=== PATIENT | male | born 1970 | race Caucasian/White ===

== ENCOUNTER 2024-03-13 20:41 | Observation (INO) ==
[2024-03-13 22:30] LABS: Basophils # (auto) 0.07 K/uL (0.00-0.20); Eosinophils # (auto) 0.22 K/uL (0.00-0.50); Eosinophils % (auto) 3.1 %; Hematocrit (blood only) 45.5 % (42.0-52.0); Hemoglobin 16.5 g/dl (14.0-18.0); Immature Granulocytes # (auto) 0.04 K/uL (0.01-0.20); Immature Granulocytes % (auto) 0.6 %; Lymphocytes # (auto) 2.32 K/uL (1.20-3.40); Lymphocytes % (auto) 32.5 %; Mean Corpuscular Hemoglobin 31.8 pg (25.0-34.0); Mean Corpuscular Hgb Conc 36.3 g/dL (32.0-36.0); Mean Corpuscular Volume 87.7 fL (80.0-100.0); Mean Platelet Volume 10.1 fL (9.4-12.4); Monocytes # (auto) 0.78 K/uL (0.11-0.59); Monocytes % (auto) 10.9 %; Neutrophils % (auto) 51.9 %; Platelet Count 326 K/uL (130-400); RDW Coefficient of Variation 12.7 % (11.5-14.5); RDW Standard Deviation 39.7 fL (36.4-46.3); Red Blood Count 5.19 M/uL (4.70-6.10); White Blood Count 7.13 K/ul (4.8-10.8)
[2024-03-13 22:42] LABS: Appearance Urine Clear (Clear); Bilirubin Urine Negative (Negative); Blood Urine Negative (Negative); Color Urine Yellow; Glucose Urine UA 3+ (Negative); Ketones Urine Trace (Negative); Leukocyte Esterase Urine Negative (Negative); Nitrite Urine Negative (Negative); Protein Urine Negative (Negative); Specific Gravity Urine 1.042 (1.000-1.030); Urobilinogen Urine Negative (Negative); pH Urine 6.5 (4.5-7.5)
[2024-03-13 22:55] LABS: Alanine Aminotransferase 43 U/L (7-52); Albumin Globulin Ratio 1.2 (0.9-2); Albumin Level 4.2 gm/dl (3.4-5.0); Alkaline Phosphatase 97 U/L (34-104); Anion Gap 8 (3-11); BUN Creatinine Ratio 14.1 (10-20); Bilirubin,Total 0.5 mg/dl (0.2-1.0); Blood Urea Nitrogen 14 mg/dl (6-23); Calcium 9.7 mg/dl (8.6-10.3); Carbon Dioxide 24 mmol/L (21-32); Chloride 98 mmol/L (98-107); Creatinine Clr Calc Pharmacy 126.5 ml/min; Est GFR (African American) 101.1 ml/min; Est GFR (Non-African American) 87.2 ml/min; Globulin 3.5 gm/dl (2.5-4.0); Glucose 474 mg/dl (70-99(Fasting)); Sodium 130 mmol/L (136-145); Total Protein 7.7 gm/dl (6.0-8.3)
[2024-03-13 23:08] LABS: Troponin I High Sensitivity 5.9 pg/ml (0-20)
[2024-03-13 23:24] LABS: Base Excess VBG 2.4 mEq/L; HCO3 VBG 29 mmol/L; Oxygen Saturation VBG < 60.0 %; PCO2 VBG 51 mmHg (38-50); PO2 VBG < 20 mmHg; pH VBG 7.36 (7.36-7.41)
[2024-03-13] MEDS: SODIUM CHLORIDE 0.9% 1,000 ML IV SCH (23:25)
[2024-03-13 23:46] LABS: Potassium 4.4 mmol/L (3.5-5.1)
[2024-03-14] MEDS: NovoLIN-R INSULIN PER UNIT CHARGE IV STA (00:05)
--- NOTE | 2024-03-14 00:05 | Emergency Department Note ---
History of Present Illness General Chief complaint: Hyperglycemia Stated complaint: HIGH GLUCOSE, BLURRY VISION, RT ARM/LT LEG NUMB Time Seen by Provider: 03/13/24 22:33 History of Present Illness This 53-year-old male presents ER complaining of polydipsia, polyuria and diplopia for the past month. Patient states has been on metformin in the past but is not tolerating it. He was concerned his blood sugars are reading greater than 400 and came in. Patient denies chest pain, dyspnea, fever, chills, cough, congestion, abdominal pain or flulike illness. Home Medications Medication Instructions Recorded Confirmed Type ascorbic acid (vitamin C) 100 mg 100 mg PO DAILY 08/11/21 03/14/24 History tablet (Vitamin C) famotidine 20 mg tablet (Pepcid) 20 mg PO BID 08/11/21 03/14/24 History hyoscyamine sulfate 0.125 mg 0.125 mg sublingual Q6 PRN cramping 08/11/21 03/14/24 History sublingual tablet methotrexate sodium 2.5 mg tablet See Rx Instructions .Route .COMPLEX 08/11/21 03/14/24 History multivitamin (Daily Multi-Vitamin 1 tab PO DAILY 08/11/21 03/14/24 History tablet) omega 6-lzu-bpn-fish oil 1,000 mg 1 cap PO DAILY 08/11/21 03/14/24 History (120 mg-180 mg) capsule (Fish Oil) polyethylene glycol 3350 17 17 g PO DAILY 08/11/21 03/14/24 History gram/dose oral powder (Miralax) folic acid 1 mg tablet 1 mg PO [id number] 12/16/23 03/14/24 History amlodipine 2.5 mg tablet 2.5 mg PO QAM 03/14/24 03/14/24 History atorvastatin 20 mg tablet 20 mg PO QAM 03/14/24 03/14/24 History metformin 500 mg tablet,extended 500 mg PO DAILY 03/14/24 03/14/24 History release 24 hr Allergies Allergy/AdvReac Type Severity Reaction Status Date / Time Penicillins Allergy Unknown HAPPENED Verified 03/14/24 00:31 A CHILD amoxicillin [From Augmentin] AdvReac Unknown reacts Verified 03/14/24 00:31 with methotrexate clavulanic acid AdvReac Unknown reacts Verified 03/14/24 00:31 [From Augmentin] with methotrexate sulfamethoxazole AdvReac Unknown reacts Verified 03/14/24 00:31 [From Bactrim] with methotrexate trimethoprim [From Bactrim] AdvReac Unknown reacts Verified 03/14/24 00:31 with methotrexate Past Med/Surg History Problem List Acute hyperglycemia (Acute) Moderate obstructive sleep apnea No significant past surgical history Concussion Vasovagal syncope (Acute) Irritable bowel disease (Acute) Syncope (Acute) Vasovagal syncope (Acute) Head contusion (Acute) Laceration of eyebrow, right (Acute) Shoulder pain (Acute) Syncope and collapse (Acute) Social History Smoking Status: Never smoker Preferred Language: Turkmen marital status: Current Living Situation: Spouse current occupational status: employed Feels Safe at Home: Yes Review of Systems A total of 10 systems reviewed and were otherwise negative Physical Exam Vital Signs Vital Signs - 24 hr 03/13/24 21:28 03/13/24 23:29 Temperature 36.5 C Temperature Source Temporal Artery Scan Pulse Rate 103 H Pulse Rate [Finger] 88 Respiratory Rate 18 18 Respiratory Effort / Characteristics Non-Labored Spontaneous Non-Labored Spontaneous Respiratory Depth Normal Normal Respiratory Pattern Regular Blood Pressure 150/93 H Blood Pressure [Right Arm] 126/87 Blood Pressure Mean 112 Blood Pressure Mean [Right Arm] 100 Blood Pressure Position [Right Arm] Semi-fowlers Pulse Oximetry 94 93 Oxygen Delivery Method Room Air Room Air Sepsis Recent Fever Within 48 Hours No Sepsis New/Unexplained Change in Mental Status No Sepsis Action Taken by Nursing No Action Required VITALS: Vitals are noted on the nurse's note and reviewed by myself. Vital signs stable. GENERAL: Pleasant gentleman, in no acute distress, nondiaphoretic, well- developed well-nourished. SKIN: Capillary reflex less than 2 seconds. HEENT: Normocephalic. PERRLA. EOMI. Nares patent. Mucous membranes moist. Neck is supple without nuchal rigidity. HEART: Regular rate and rhythm LUNGS: Clear to auscultation bilaterally without wheezes, rales or rhonchi. No retractions or accessory muscle use. ABDOMEN: Positive bowel sounds x 4. Normal tympanic percussion. Soft, nontender, without masses or organomegaly. Gonzalez sign negative. No guarding or rebound tenderness. no CVA tenderness MUSCULOSKELETAL: No gross musculoskeletal defects. NEURO: Patient was alert and oriented to person place and time. No focal neurological deficits. Course Administered Medications Discontinued Medications Sodium Chloride (Nss) 1,000 mls @ 999 mls/hr IV .Q1H1M LEDA Stop: 03/14/24 00:45 Last Admin: 03/14/24 00:06 Dose: 999 mls/hr Documented By: Infusion: 03/14/24 00:06 Dose: Infused Documented By: Admin: 03/13/24 23:25 Dose: 999 mls/hr Documented By: Insulin Human Regular (Novolin-R Insulin Per Unit Charge) 10 units IV NOW STA Stop: 03/14/24 00:02 Last Admin: 03/14/24 00:05 Dose: 10 units Documented By: Co-signed By: ELIZABETH Medical Decision Making Medical Records Attestation: I reviewed the patient's medical records. Home Medications Current Medication List: was personally reviewed by me Laboratory Data Attestation: I reviewed the patient's lab results. 03/13/24 22:05 03/13/24 23:11 Lab Results 03/13/24 03/13/24 03/13/24 Range/Units 21:31 22:05 22:10 WBC 7.13 (4.8-10.8) K/ul RBC 5.19 (4.70-6.10) M/uL Hgb 16.5 (14.0-18.0) g/dl Hct 45.5 (42.0-52.0) % MCV 87.7 (80.0-100.0) fL MCH 31.8 (25.0-34.0) pg MCHC 36.3 H (32.0-36.0) g/dL RDW Std Deviation 39.7 (36.4-46.3) fL RDW Coeff of Caitlin 12.7 (11.5-14.5) % Plt Count 326 (130-400) K/uL MPV 10.1 (9.4-12.4) fL Immature Gran % (Auto) 0.6 % Neut % (Auto) 51.9 % Lymph % (Auto) 32.5 % Bee % (Auto) 10.9 % Eos % (Auto) 3.1 % Baso % (Auto) 1.0 % Neut # (Auto) 3.70 (1.40-6.50) K/uL Lymph # (Auto) 2.32 (1.20-3.40) K/uL Bee # (Auto) 0.78 H (0.11-0.59) K/uL Eos # (Auto) 0.22 (0.00-0.50) K/uL Baso # (Auto) 0.07 (0.00-0.20) K/uL Immature Gran # (Auto) 0.04 (0.01-0.20) K/uL VBG pH (7.36-7.41) VBG pCO2 (38-50) mmHg VBG pO2 mmHg VBG HCO3 mmol/L VBG O2 Saturation % VBG Base Excess mEq/L Sodium 130 L (136-145) mmol/L Potassium TNP Chloride 98 (98-107) mmol/L Carbon Dioxide 24 (21-32) mmol/L Anion Gap 8 (3-11) BUN 14 (6-23) mg/dl Creatinine 0.99 (0.6-1.4) mg/dl Est Cr Clr Drug Dosing 126.5 ml/min Est GFR ( Amer) 101.1 ml/min Est GFR (Non-Af Amer) 87.2 ml/min BUN/Creatinine Ratio 14.1 (10-20) Glucose 474 H* (70-99(Fasting)) mg/dl POC Glucose 402 H* (70-99) mg/dl Calcium 9.7 (8.6-10.3) mg/dl Magnesium 2.0 (1.7-2.4) mg/dl Total Bilirubin 0.5 (0.2-1.0) mg/dl AST TNP ALT 43 (7-52) U/L Alkaline Phosphatase 97 (34-104) U/L Troponin I High Sens 5.9 (0-20) pg/ml Total Protein 7.7 (6.0-8.3) gm/dl Albumin 4.2 (3.4-5.0) gm/dl Globulin 3.5 (2.5-4.0) gm/dl Albumin/Globulin Ratio 1.2 (0.9-2) Urine Color Yellow Urine Appearance Clear (Clear) Urine pH 6.5 (4.5-7.5) Ur Specific [place] 1.042 H (1.000-1.030) Urine Protein Negative (Negative) Urine Glucose (UA) 3+ H (Negative) Urine Ketones Trace H (Negative) Urine Blood Negative (Negative) Urine Nitrite Negative (Negative) Urine Bilirubin Negative (Negative) Urine Urobilinogen Negative (Negative) Ur Leukocyte Esterase Negative (Negative) 03/13/24 03/14/24 Range/Units 23:11 00:00 WBC (4.8-10.8) K/ul RBC (4.70-6.10) M/uL Hgb (14.0-18.0) g/dl Hct (42.0-52.0) % MCV (80.0-100.0) fL MCH (25.0-34.0) pg MCHC (32.0-36.0) g/dL RDW Std Deviation (36.4-46.3) fL RDW Coeff of Caitlin (11.5-14.5) % Plt Count (130-400) K/uL MPV (9.4-12.4) fL Immature Gran % (Auto) % Neut % (Auto) % Lymph % (Auto) % Bee % (Auto) % Eos % (Auto) % Baso % (Auto) % Neut # (Auto) (1.40-6.50) K/uL Lymph # (Auto) (1.20-3.40) K/uL Bee # (Auto) (0.11-0.59) K/uL Eos # (Auto) (0.00-0.50) K/uL Baso # (Auto) (0.00-0.20) K/uL Immature Gran # (Auto) (0.01-0.20) K/uL VBG pH 7.36 (7.36-7.41) VBG pCO2 51 H (38-50) mmHg VBG pO2 < 20 mmHg VBG HCO3 29 mmol/L VBG O2 Saturation < 60.0 % VBG Base Excess 2.4 mEq/L Sodium (136-145) mmol/L Potassium 4.4 Chloride (98-107) mmol/L Carbon Dioxide (21-32) mmol/L Anion Gap (3-11) BUN (6-23) mg/dl Creatinine (0.6-1.4) mg/dl Est Cr Clr Drug Dosing ml/min Est GFR ( Amer) ml/min Est GFR (Non-Af Amer) ml/min BUN/Creatinine Ratio (10-20) Glucose (70-99(Fasting)) mg/dl POC Glucose 363 H* (70-99) mg/dl Calcium (8.6-10.3) mg/dl Magnesium (1.7-2.4) mg/dl Total Bilirubin (0.2-1.0) mg/dl AST 34 ALT (7-52) U/L Alkaline Phosphatase (34-104) U/L Troponin I High Sens (0-20) pg/ml Total Protein (6.0-8.3) gm/dl Albumin (3.4-5.0) gm/dl Globulin (2.5-4.0) gm/dl Albumin/Globulin Ratio (0.9-2) Urine Color Urine Appearance (Clear) Urine pH (4.5-7.5) Ur Specific [place] (1.000-1.030) Urine Protein (Negative) Urine Glucose (UA) (Negative) Urine Ketones (Negative) Urine Blood (Negative) Urine Nitrite (Negative) Urine Bilirubin (Negative) Urine Urobilinogen (Negative) Ur Leukocyte Esterase (Negative) Imaging Data Attestation: I personally reviewed and interpreted this imaging study as follows: MDM Narrative Prior records/ancillary studies reviewed and summarized above. Nursing notes reviewed. Additional history obtained from nursing The patient's history was concerning for elevated blood sugar. Differential diagnosis: Etiologies such as metabolic, infection, hypo/hyperglycemia, electrolyte abnormalities, cardiac sources, intracerebral event, toxicologic, neurologic, as well as others were entertained. Physical examination: As above. ER treatment provided: IV Lock An order was placed for continuous cardiac monitoring. The monitor shows a rate of 60-100 with a sinus rhythm per my interpretation. IV fluids, insulin On reassessment the patient felt better. Diagnostics interpretation by me: ECG: Ordered for hyperglycemia EKG: Normal sinus, normal intervals, no acute ST-T wave changes. Impression normal sinus rhythm independently interpreted by myself The labs Independently Interpreted by myself revealed hyperglycemia without DKA. Negative urine Imaging studies: Chest x-ray with no acute consolidation, pneumothorax or free air per my independent interpretation Consultation: A consultation was placed with the hospitalist. The case was discussed and diagnostics were reviewed. The patient was evaluated in the ER for further treatment. Exam and history seem consistent with newly diagnosed poorly controlled diabetes. Patient is not able to tolerate the metformin. He is symptomatic. He was given insulin and IV fluids. Medicine was consulted case discussed. He will be admitted to the medical service for further evaluation and workup. No obvious source of infection. By the evaluation outlined above emergent etiologies such as infection, electrolyte abnormalities, cardiac sources, intracerebral event, toxologic, neurologic, metabolic, as well as others were deemed relatively unlikely. The pt informed about the findings as listed above. All questions were answered and pleased with the treatment. The chart was completed utilizing [employer] Speech voice recognition software. Grammatical errors, random word insertions, pronoun errors, and incomplete sentences are an occassional consequence of this system due to software limitations, ambient noise, and hardware issues. Any formal questions or concerns about the content, text, or information contained within the body of this dictation should be directly addressed to the physician medical claims assistant for clarification. Impression & Plan Acute hyperglycemia Discharge Plan Visit Data Chief Complaint: Hyperglycemia Stated Complaint: HIGH GLUCOSE, BLURRY VISION, RT ARM/LT LEG NUMB ED Provider: Celio Arguelles ED Midlevel Provider: Kerri Armstrong Discharge Problem: Acute hyperglycemia Patient Disposition: Admitted As Inpatient Condition: Good Forms Stand Alone Forms: My [employer] Prescriptions Prescriptions: No Action multivitamin [Daily Multi-Vitamin] Tablet 1 tab PO DAILY famotidine [Pepcid] 20 mg Tablet 20 mg PO BID Vitamin C 100 mg Tablet 100 mg PO DAILY omega 2-diq-bcm-fish oil [Fish Oil] 1,000 mg (120 mg-180 mg) Capsule 1 cap PO DAILY methotrexate sodium 2.5 mg tablet See Rx Instructions .ROUTE .COMPLEX Rx Instructions: take 3 tablets by mouth with lunch and 3 tablets with dinner on sundays hyoscyamine sulfate 0.125 mg tablet, sublingual 0.125 mg sublingual Q6 PRN (Reason: cramping) polyethylene glycol 3350 [Miralax] 17 gram/dose Powder 17 g PO DAILY folic acid 1 mg tablet 1 mg PO [id number] Rx Instructions: TAKES EVERY DAY EXCEPT SUNDAYS. atorvastatin 20 mg tablet 20 mg PO QAM amlodipine 2.5 mg tablet 2.5 mg PO QAM metformin 500 mg Tablet Extended Release 24 Hr 500 mg PO DAILY Referrals Referrals: Bashir Plaza MD [Primary Care Provider] -
--- NOTE | 2024-03-14 03:06 | History & Physical Report ---
Date of Service March 14, 2024 Assessment & Plan (1) Acute hyperglycemia: Plan: 53-year-old male with past medical history significant for type 2 diabetes, hyperlipidemia, obstructive sleep apnea, allergic rhinitis, hypertension, obesity, irritable bowel syndrome, history of basal cell carcinoma, history of dermatographic urticaria, history of ocular migraine, history of rheumatoid arthritis, presents with hyperglycemia. Patient says he was on metformin last year but took only for 1 month and stopped it because felt it was causing fatigue. Recently saw PCP and his HbA1c was increased from 5.7 last year to 8.5. Seems/when his metformin was increased to 1000 mg he felt fatigued and tired. Metformin 500 mg was restarted about a week ago. He was also prescribed Mounjaro but patient states not sure if insurance approved it yet. But his sugars were running high at home and came to the ER. Sugars are running in the 400s in the ER. Had a lot of blurred visions from high sugars. Denies any headache. No dizziness. No runny nose or sore throat, no cough. No fevers. No chest pain or shortness of breath. No nausea or abdominal pain. Normal bowel and bladder movements. Ambulating okay. Currently resting comfortably and hemodynamically stable. Acute hyperglycemia Recent HbA1c 8.5 Could not tolerate metformin increased dose last year Metformin 500 mg started about 1 week ago Mounjaro was prescribed but not started taking it yet Blood sugar in 400s. Not in DKA Will place him on insulin sliding scale and Lantus 6 units twice daily Follow HbA1c levels IV fluids Glycemic pharmacy consult Close monitor Sleep apnea CPAP nightly says not uses it daily needs counselling Hypertension on amlodipine Will monitor Hyperlipidemia On statin Rheumatoid arthritis On methotrexate which will be held for now Obesity Needs counseling DVT prophylaxis SCDs for now Disposition Observation medical floor Full code History of Present Illness Chief Complaint: Hyperglycemia Primary Care Provider: Bashir Plaza MD 53-year-old male with past medical history significant for type 2 diabetes, hyperlipidemia, obstructive sleep apnea, allergic rhinitis, hypertension, obesity, irritable bowel syndrome, history of basal cell carcinoma, history of dermatographic urticaria, history of ocular migraine, history of rheumatoid arthritis, presents with hyperglycemia. Patient says he was on metformin last year but took only for 1 month and stopped it because felt it was causing fa tigue. Recently saw PCP and his HbA1c was increased from 5.7 last year to 8.5. Seems/when his metformin was increased to 1000 mg he felt fatigued and tired. Metformin 500 mg was restarted about a week ago. He was also prescribed Mounjaro but patient states not sure if insurance approved it yet. But his sugars were running high at home and came to the ER. Sugars are running in the 400s in the ER. Had a lot of blurred visions from high sugars. Denies any headache. No dizziness. No runny nose or sore throat, no cough. No fevers. No chest pain or shortness of breath. No nausea or abdominal pain. Normal bowel and bladder movements. Ambulating okay. Currently resting comfortably and hemodynamically stable. Past medical history. As mentioned above Past surgical history. Colonoscopy. Dental surgery. EGD Social history. . No smoking. No alcohol use. No drug use. Family history. Aunt has rheumatoid arthritis. Mother has rheumatoid arthritis. A-fib, IBS, stroke. Father has bipolar 2 disorder, diabetes. Allergies Allergy/AdvReac Type Severity Reaction Status Date / Time Penicillins Allergy Unknown HAPPENED Verified 03/14/24 00:31 A CHILD amoxicillin [From Augmentin] AdvReac Unknown reacts Verified 03/14/24 00:31 with methotrexate clavulanic acid AdvReac Unknown reacts Verified 03/14/24 00:31 [From Augmentin] with methotrexate sulfamethoxazole AdvReac Unknown reacts Verified 03/14/24 00:31 [From Bactrim] with methotrexate trimethoprim [From Bactrim] AdvReac Unknown reacts Verified 03/14/24 00:31 with methotrexate Home Medications Medication Instructions Recorded Confirmed Type ascorbic acid (vitamin C) 100 mg 100 mg PO DAILY 08/11/21 03/14/24 History tablet (Vitamin C) famotidine 20 mg tablet (Pepcid) 20 mg PO BID 08/11/21 03/14/24 History hyoscyamine sulfate 0.125 mg 0.125 mg sublingual Q6 PRN cramping 08/11/21 03/14/24 History sublingual tablet methotrexate sodium 2.5 mg tablet See Rx Instructions .Route .COMPLEX 08/11/21 03/14/24 History multivitamin (Daily Multi-Vitamin 1 tab PO DAILY 08/11/21 03/14/24 History tablet) omega 6-fzs-hkw-fish oil 1,000 mg 1 cap PO DAILY 08/11/21 03/14/24 History (120 mg-180 mg) capsule (Fish Oil) polyethylene glycol 3350 17 17 g PO DAILY 08/11/21 03/14/24 History gram/dose oral powder (Miralax) folic acid 1 mg tablet 1 mg PO [id number] 12/16/23 03/14/24 History amlodipine 2.5 mg tablet 2.5 mg PO QAM 03/14/24 03/14/24 History atorvastatin 20 mg tablet 20 mg PO QAM 03/14/24 03/14/24 History metformin 500 mg tablet,extended 500 mg PO DAILY 03/14/24 03/14/24 History release 24 hr Past Med/Surg History Problem List Acute hyperglycemia (Acute) Moderate obstructive sleep apnea No significant past surgical history Concussion Vasovagal syncope (Acute) Irritable bowel disease (Acute) Syncope (Acute) Vasovagal syncope (Acute) Head contusion (Acute) Laceration of eyebrow, right (Acute) Shoulder pain (Acute) Syncope and collapse (Acute) Social History Smoking Status: Never smoker Hx Alcohol Use: No Hx Substance Use: No Preferred Language: Turkish Communication Ability: Effective Instrument Maker Required: No Beliefs That Will Affect Care: None marital status: Current Living Situation: Spouse current occupational status: employed Other Information That Helps Us Care for You: No Feels Safe at Home: Yes Safety Concerns: Feels Safe At This Time Assistive Devices: Glasses Review of Systems Review of Systems: All systems reviewed & are unremarkable except as noted in HPI & below Physical Exam Physical Exam: General- Not in distress Head- atraumatic Eyes- PERRL. ENT- oropharynx clear Neck- supple, no JVD. Lungs- clear to auscultation no wheezing or crackles Heart- regular rate and rhythm; no murmur, no gallop. Abdomen- normal bowel sounds, soft, nontender, no distension Extremities- no pretibial edema, no erythema seen Neuro- alert, oriented ; PERRL, no facial palsy; no dysarthria; moves extremities. Results & Data Results & Data Vital Signs (Past 12 Hours) Vital Signs Temp Pulse Pulse Resp BP BP Pulse Ox 08/29/24 01:34 85 18 146/82 H 97 03/13/24 23:29 88 18 126/87 93 03/13/24 21:28 36.5 C 103 H 18 150/93 H 94 O2 Del Method 03/14/24 01:34 Room Air 03/13/24 23:29 Room Air 03/13/24 21:28 Room Air Diagnostic Findings Laboratory Results WBC 7.13 K/ul (4.8-10.8) 03/13/24 22:05 RBC 5.19 M/uL (4.70-6.10) 03/13/24 22:05 Hgb 16.5 g/dl (14.0-18.0) 03/13/24 22:05 Hct 45.5 % (42.0-52.0) 03/13/24 22:05 MCV 87.7 fL (80.0-100.0) 03/13/24 22:05 MCH 31.8 pg (25.0-34.0) 03/13/24 22:05 MCHC 36.3 g/dL (32.0-36.0) H 03/13/24 22:05 RDW Std Deviation 39.7 fL (36.4-46.3) 03/13/24 22:05 RDW Coeff of Caitlin 12.7 % (11.5-14.5) 03/13/24 22:05 Plt Count 326 K/uL (130-400) 03/13/24 22:05 MPV 10.1 fL (9.4-12.4) 03/13/24 22:05 Immature Gran % (Auto) 0.6 % 03/13/24 22:05 Neut % (Auto) 51.9 % 03/13/24 22:05 Lymph % (Auto) 32.5 % 03/13/24 22:05 Gregory % (Auto) 10.9 % 03/13/24 22:05 Eos % (Auto) 3.1 % 03/13/24 22:05 Baso % (Auto) 1.0 % 03/13/24 22:05 Neut # (Auto) 3.70 K/uL (1.40-6.50) 03/13/24 22:05 Lymph # (Auto) 2.32 K/uL (1.20-3.40) 03/13/24 22:05 Gregory # (Auto) 0.78 K/uL (0.11-0.59) H 03/13/24 22:05 Eos # (Auto) 0.22 K/uL (0.00-0.50) 03/13/24 22:05 Baso # (Auto) 0.07 K/uL (0.00-0.20) 03/13/24 22:05 Immature Gran # (Auto) 0.04 K/uL (0.01-0.20) 03/13/24 22:05 VBG pH 7.36 (7.36-7.41) 03/13/24 23:11 VBG pCO2 51 mmHg (38-50) H 03/13/24 23:11 VBG pO2 < 20 mmHg 03/13/24 23:11 VBG HCO3 29 mmol/L 03/13/24 23:11 VBG O2 Saturation < 60.0 % 03/13/24 23:11 VBG Base Excess 2.4 mEq/L 03/13/24 23:11 Sodium 130 mmol/L (136-145) L 03/13/24 22:05 Potassium 4.4 mmol/L (3.5-5.1) 03/13/24 23:11 Chloride 98 mmol/L (98-107) 03/13/24 22:05 Carbon Dioxide 24 mmol/L (21-32) 03/13/24 22:05 Anion Gap 8 (3-11) 03/13/24 22:05 BUN 14 mg/dl (6-23) 03/13/24 22:05 Creatinine 0.99 mg/dl (0.6-1.4) 03/13/24 22:05 Est Cr Clr Drug Dosing 126.5 ml/min 03/13/24 22:05 Est GFR ( Amer) 101.1 ml/min 03/13/24 22:05 Est GFR (Non-Af Amer) 87.2 ml/min 03/13/24 22:05 BUN/Creatinine Ratio 14.1 (10-20) 03/13/24 22:05 Glucose 474 mg/dl (70-99(Fasting)) H* 03/13/24 22:05 POC Glucose 363 mg/dl (70-99) H* 03/14/24 00:00 Calcium 9.7 mg/dl (8.6-10.3) 03/13/24 22:05 Magnesium 2.0 mg/dl (1.7-2.4) 03/13/24 22:05 Total Bilirubin 0.5 mg/dl (0.2-1.0) 03/13/24 22:05 AST 34 U/L (13-39) 03/13/24 23:11 ALT 43 U/L (7-52) 03/13/24 22:05 Alkaline Phosphatase 97 U/L (34-104) 03/13/24 22:05 Troponin I High Sens 5.9 pg/ml (0-20) 03/13/24 22:05 Total Protein 7.7 gm/dl (6.0-8.3) 03/13/24 22:05 Albumin 4.2 gm/dl (3.4-5.0) 03/13/24 22:05 Globulin 3.5 gm/dl (2.5-4.0) 03/13/24 22:05 Albumin/Globulin Ratio 1.2 (0.9-2) 03/13/24 22:05 Urine Color Yellow 03/13/24 22:10 Urine Appearance Clear (Clear) 03/13/24 22:10 Urine pH 6.5 (4.5-7.5) 03/13/24 22:10 Ur Specific [place] 1.042 (1.000-1.030) H 03/13/24 22:10 Urine Protein Negative (Negative) 03/13/24 22:10 Urine Glucose (UA) 3+ (Negative) H 03/13/24 22:10 Urine Ketones Trace (Negative) H 03/13/24 22:10 Urine Blood Negative (Negative) 03/13/24 22:10 Urine Nitrite Negative (Negative) 03/13/24 22:10 Urine Bilirubin Negative (Negative) 03/13/24 22:10 Urine Urobilinogen Negative (Negative) 03/13/24 22:10 Ur Leukocyte Esterase Negative (Negative) 03/13/24 22:10 ECG Additional Comments: ECG normal sinus rhythm rate of 89. No significant change was found. Code Status & VTE Plan VTE Prophylaxis Plan VTE Prophylaxis will be ordered: Yes
[2024-03-14] MEDS ORDERED: POLYETHYLENE (MIRALAX) 17 GM PACK PO PRN (06:21)
[2024-03-14] MEDS ORDERED: CARBOHYDRATES FOR HYPOGLYCEMIA PO PRN (06:21)
[2024-03-14] MEDS ORDERED: DEXTROSE 50% 50 ML SYRINGE IV PRN (06:21)
[2024-03-14] MEDS ORDERED: PHARMACY GLYCEMIC MGMT CONSULT PRN (06:21)
[2024-03-14] MEDS ORDERED: ACETAMINOPHEN 325 MG TAB PO PRN (06:21)
[2024-03-14] MEDS ORDERED: GLUCAGON FOR INJ 1 MG VIAL SQ PRN (06:21)
[2024-03-14] MEDS ORDERED: GLUCOSE 10 TAB/TUBE PO PRN (06:21)
[2024-03-14] MEDS ORDERED: GLUCOSE 40% GEL 15 GM TUBE PO PRN (06:21)
[2024-03-14] MEDS: SODIUM CHLORIDE 0.9% 1,000 ML IV SCH (06:56)
[2024-03-14 07:12] LABS: Basophils # (auto) 0.08 K/uL (0.00-0.20); Basophils % (auto) 1.3 %; Eosinophils # (auto) 0.32 K/uL (0.00-0.50); Eosinophils % (auto) 5.2 %; Hematocrit (blood only) 42.4 % (42.0-52.0); Hemoglobin 15.3 g/dl (14.0-18.0); Immature Granulocytes # (auto) 0.06 K/uL (0.01-0.20); Lymphocytes # (auto) 2.67 K/uL (1.20-3.40); Lymphocytes % (auto) 43.7 %; Mean Corpuscular Hemoglobin 31.7 pg (25.0-34.0); Mean Corpuscular Hgb Conc 36.1 g/dL (32.0-36.0); Mean Corpuscular Volume 87.8 fL (80.0-100.0); Mean Platelet Volume 10.1 fL (9.4-12.4); Monocytes # (auto) 0.78 K/uL (0.11-0.59); Monocytes % (auto) 12.8 %; Platelet Count 276 K/uL (130-400); RDW Coefficient of Variation 12.6 % (11.5-14.5); RDW Standard Deviation 40.4 fL (36.4-46.3); Red Blood Count 4.83 M/uL (4.70-6.10); White Blood Count 6.11 K/ul (4.8-10.8)
[2024-03-14 07:20] LABS: BUN Creatinine Ratio 12.8 (10-20); Calcium 8.4 mg/dl (8.6-10.3); Creatinine Clr Calc Pharmacy 160.5 ml/min; Est GFR (African American) 120.3 ml/min; Est GFR (Non-African American) 103.8 ml/min; Magnesium 1.8 mg/dl (1.7-2.4); Potassium 3.9 mmol/L (3.5-5.1)
[2024-03-14 07:26] LABS: Estimated Average Glucose 269 mg/dl
--- OUTSIDE RECORDS SUMMARY | 2024-03-14 08:14 | External Medical Summary | Summary of Care ---
Author Name Unknown Organization [facility] Address [address] [place] [address] Phone [phone] Care Team Providers Care Men'S Designer Name Role Phone Bola BAE MD, Brian Modi Primary Care Provider [phone] Reason for Visit * Reason Onset Date Comments Medication Refill 03/13/2024 Encounter Details Date Type Department Care Team (Late st Contact Info) Description 03/13/2024 Refill Family Practice [facility] [address] [place] [place] [address] Gaby Trevizo MD [address] [place] [address] Mixed dyslipidemia Allergies Active Allergy Reactions Criticality Noted Date Comments Amoxicillin-Pot Clavulanate 12/21/2017 Interacts with methotrexate Sulfamethoxazole-Trimethop rim 12/21/2017 On methotrexate Penicillins 04/29/2002 told occurred as an infant Other reaction(s): reacts with methotrexate, Unknown documented as of this encounter (statuses as of 03/13/2024) Medications Medication Sig Dispensed Refills Start Date End Date Status DAILY MULTIVITAMIN PO TABSIndications:Ro utine medical exam 0 09/03/2008 Active VITAMIN C 100 MG PO TABS one daily Active FISH OIL 1000 MG PO CAPS one capsule daily Active polyethylene glycol 3350 (MIRALAX) 255 gram powderIndications: Irritable bowel syndrome with both constipation and diarrhea,Abdominal cramps Take 17 g by mouth daily. TAKE 17 G BY MOUTH DAILY. TAKE 17 G DAILY, ONE CAPFUL IN JUICE TO EFFECT 1 STOOL PER DAY 527 g 4 07/02/2018 Active Famotidine 20 MG Oral Tablet Take 1 Tablet by mouth in the morning and 1 Tablet before bedtime. Active Ondansetron HCl 4 MG Oral TabletIndications: Nausea Take 1 Tablet by mouth every 12 hours as needed for Nausea. 20 Tablet 5 08/05/2022 Active Loratadine 10 MG Oral Capsule (Claritin) Take 1 Capsule by mouth in the morning. Active Hyoscyamine Sulfate 0.125 MG Sublingual Tablet Sublingual (Levsin)Indication s:Irritable bowel syndrome Take 1 Tablet by mouth every 6 hours as needed for Cramping. 360 Tablet 3 05/30/2023 Active hydrOXYzine HCl 50 MG Oral TabletIndications: Generalized anxiety disorder,Panic attack Take 1 Tablet by mouth daily as needed for Anxiety. 10 Tablet 1 05/30/2023 Active Folic Acid 1 MG Oral Tablet TAKE 1 TABLET BY MOUTH EVERY DAY IN THE MORNING 90 Tablet 3 06/26/2023 Active amLODIPine Besylate 2.5 MG Oral Tablet (Norvasc)Indicatio ns:Hypertension goal BP (blood pressure) < 130/80 Take 1 Tablet by mouth in the morning. 30 Tablet 5 10/12/2023 Active Methotrexate Sodium 2.5 MG Oral TabletIndications: Rheumatoid arthritis involving multiple sites with positive rheumatoid factor (HCC) TAKE 3 TABLETS BY MOUTH WITH LUNCH AND 3 TABLETS WITH DINNER ON SUNDAYS, 78 Tablet 1 11/01/2023 Active metFORMIN HCl ER 500 MG Oral Tablet Extended Release 24 Hour (Glucophage XR) Take 1 Tablet by mouth daily. Active Mounjaro 2.5 MG/0.5ML Subcutaneous Solution Pen-injector (Tirzepatide)Indic ations:Type 2 diabetes mellitus with hyperglycemia, without long-term current use of insulin (HCC),Body mass index (BMI) of 45.0 to 49.9 in adult ([facility]) Inject 2.5 mg under the skin once a week. 2 mL 11 02/13/2024 02/12/2025 Active Atorvastatin Calcium 20 MG Oral Tablet (Lipitor)Indicatio ns:Mixed dyslipidemia Take 1 Tablet by mouth in the morning. 90 Tablet 3 03/13/2024 Active Atorvastatin Calcium 20 MG Oral Tablet (Lipitor)Indicatio ns:Mixed dyslipidemia Take 1 Tablet by mouth in the morning. 30 Tablet 5 02/13/2024 03/13/2024 Discontinued (Refill) documented as of this encounter (statuses as of 03/13/2024) Active Problems Problem Noted Date Diagnosed Date Type 2 diabetes mellitus wit h hyperglycemia, without long-term current use of insulin 02/13/2024 Hypertension goal BP (blood pressure) < 130/80 0 10/12/2023 Mixed dyslipidemia 10/12/2023 Body mass index (BMI) of 45.0 to 49.9 in adult 1 07/29/2022 Overview: Per Obesity protocol - Ocular migraine 05/20/2020 Long-term use of high-risk medication 12/19/2018 History of basal cell carcinoma (BCC) 11/15/2017 Rheumatoid arthritis involvi ng multiple sites with positive rheumatoid factor 04/21/2017 Dermatographic urticaria 04/26/2011 Allergic rhinitis 03/02/2011 Obstructive sleep apnea syndrome 09/03/2008 Irritable bowel syndrome 04/29/2002 documented as of this encounter (statuses as of 03/13/2024) Resolved Problems Problem Noted Date Diagnosed Date Resolved Date Body mass index (BMI) of 40. 0 to 44.9 in adult 04/17/2017 06/01/2023 Overview: Per Obesity protocol #1 Obesity, Class II, BMI 35-39 .9, isolated (see actual BMI) 01/28/2011 04/20/2017 Overview: Per Obesity protocol #1 documented as of this encounter (statuses as of 03/13/2024) Immunizations Name Administration Dates Next Due COVID-19 mRNA, LNP-s, No Pre serve, 2-Dose Series (Manufacturers[employer] Inventory) 11/18/2021,05/20/2021,10/01/2020,09/17,08/27/2020 HEP A - Hepatitis A (Adult > 18 yrs) 01/03/2024, 07/04/2023 Pneumococcal Conjugate Vacc, 13 Valent (Prevnar) 08/30/2019 Seasonal Influenza Virus Vac cine, Unspecified Formulation 06/20/2023 Seasonal Influenza, PF, 6 M & above, IM , (FluLaval or Fluzone) 03/28/2022,04/01/2020,04/29/2019 Seasonal Influenza, QUAD, wi th Preserv, 6 mons & Above, 0.5 mL, IM 05/20/2021 Seasonal Influenza, Quadriva lent, No Preserve, IM 03/29/2017,03/23/2016 Seasonal Influenza, Split, I IV3, With Preserve, Inj 05/28/2013,04/16/2012,03/31/2011,05/22,05/31/2008,08/14/2006 03/31/2012 TD, Preservative Free 08/30/2019 TDAP, Age 7 and older, IM (Adacel) 06/09/2008 Zoster Vaccine Recombinant (Shingrix) 07/20/2022,01/04/2022 documented as of this encounter Social History Tobacco Use Types Packs/Day Years Used Date Smoking Tobacco: Never Smokeless Tobacco: Never Comments:no passive smoke ex posures Alcohol Use Standard Drinks/Week Comments No 0 (1 standard drink = 0.6 oz pur e alcohol) PHQ-2 Answer Date Recorded PHQ Adult Total Score 2 07/20/2022 Hunger Vital Sign Answer Date Recorded Within the past 12 months, y ou worried that your food would run out before you got the money to buy more. Never true 05/11/20 23 Within the past 12 months, t he food you bought just didn't last and you didn't have money to get more. Never true 05/11/2023 Childcare Answer Date Recorded Do you feel overwhelmed with taking care of a child, family member or friend? No 05/11/2023 Does your family need help f inding childcare? (Household - for ages 0-17 years) Not on file 05/11/2023 Clothing Answer Date Recorded Have you been unable to get clothing when it was really needed? No 05/11/2023 Is your family able to get c lothes or diapers when needed? (Household - for ages 0-17 years) Not on file 05/11/2023 Personal Safety Answer Date Recorded Do you feel unsafe or have concerns for your saf ety? No 05/11/2023 Do you have concerns for you r family's safety? (Household - for ages 0-17 years) Not on file 05/11/2023 Utilities Answer Date Recorded Do you have trouble paying y our heating, water, or electric bill? No 05/11/2023 Is your family able to pay t he heat, water, or electric bill? (Household - for ages 0-17 years) Not on file 05/11/2023 Does your family have access to good internet? (Household - for ages 0-17 years) Not on file 05/11/2023 Employment Status Answer Date Recorded Are you unemployed or without regular income? No 05/11/2023 Does the household have a re gular source of income? (Household - for ages 0-17 years) Not on file 05/11/2023 Social Connections Answer Date Recorded How often do you feel lonely or isolated from th ose around you? Never 05/11/2023 Financial Resource Strain Answer Date R ecorded Do you have any trouble payi ng for your medications, or do you think you might in the future? No 05/11/2023 Does your family have troubl e paying for medicine? (Household - for ages 0-17 years) Not on file 05/11/2023 Transportation Needs Answer Date Record ed READ ONLY Do you have troubl e getting a ride to medical visits or work? Never True 05/11/2023 Does your family have a hard time getting a ride to doctors visits? (Household - for ages 0-17 years) Not on file 05/11/2023 Has lack of transportation k ept you from medical appointments, meetings, work, or from getting things needed for daily living? Check all that apply. (Adult - for ages 18 years and over) Not on file 05/11/2023 Do you (or your family) have trouble finding or paying for a ride (transportation)? (Household - for ages 0-17 years) Not on file 05/11/2023 Housing Stability Answer Date Recorded Do you currently live in a s helter or have no steady place to sleep at night? No 05/11/2023 READ ONLY Do you think you a re at risk of becoming homeless? No 05/11/2023 Does your family worry about paying for your home or becoming homeless? (Household - for ages 0-17 years) Not on file 1 Are you homeless or worried that you might be in the future? (Adult - for ages 18 years and over) Not on file Are you (or your family) rolando eless or worried that you might be in the future? (Household - for ages 0-17 years) Not on file Food Insecurity Answer Date Recorded Do you need food for this week? No 05/11/2023 Are you able to get enough f ood for your family? (Household - for ages 0-17 years) Not on file 05/11/2023 Does your family need food t his week? (Household - for ages 0-17 years) Not on file 05/11/2023 Do you always have enough fo od for your family? (Household - for ages 0-17 years) Not on file 05/11/2023 Sex and Gender Information Value Date Recorded Sex Assigned at Male 03/24/2021 6:53 AM EDT Gender Identity Male 03/24/2021 6:53 AM EDT Sexual Orientation Straight 03/24/2021 6: 53 AM EDT Job Start Date Occupation Industry Not on file Not on file Not on file documented as of this encounter Miscellaneous Notes * Telephone Encounter - Brian Quintero III, MD - 03/13/2024 10:25 AM EDTSigned Prescriptions: Disp Refills Atorvastatin Calcium 20 MG Oral Tablet (Li*90 Tab*3 Sig: Take 1Tablet by mouth in the morning.Authorizing Provider: BRIAN QUINTERO III * Telephone Encounter - Katy Davis LPN - 03/13/2024 8:21 AM EDTPending Prescriptions: Disp Refills Atorvastatin Calcium 20 MG Oral Tablet (Li*90 Tab*3 Sig: Take 1 Tablet by mouth in the morning. * Telephone Encounter - Katy Davis LPN - 03/13/2024 8:20 AM EDT Requesting 90 day supply * Telephone Encounter - Vicky Campa OSA - 03/13/2024 7:29 AM EDT Did you pend patient's preferred pharmacy and medication before forwarding?yes Pharmacy: [id number] Pending Prescriptions: Disp Refills Atorvastatin Calcium 20 MG Oral Tablet (L*30 Tab*5 Sig: Take 1 Tablet by mouth in the morning. Last Visit: 02/13/2024 (in office), 05/30/2023 (telemedicine) Next Visit: Visit date not found If no future appointments scheduled, and last appointment is greater than a year ago, please schedule patient for a follow-up appointment Last date the medication was ordered: [id number] Is this request for a controlled substance?No Urine Drug Screen:No results found for this or any previous visit. Patient Phone Numbers Labs: Lab Results Component Value Date/Time CREAT 1.0 02/02/2024 09:20 AM CREAT 1.0 04/01/2020 05:08 PM POTASSIUM 4.6 02/02/2024 09:20 AM POTASSIUM 4.2 11/03/2016 01:37 PM TSH 0.94 10/07/2021 07:42 AM TSH 1.35 04/16/2015 03:56 PM LDLCALC 139 (H) 02/02/2024 09:20 AM LDLCALC 162 (H) 11/03/2016 01:37 PM LDLDIRECT 155 (H) 03/28/2023 01:07 PM LDLDIRECT NOT APPLICABLE 02/24/2015 08:10 AM ALT 28 02/02/2024 09:20 AM ALT 30 04/01/2020 05:08 PM HGBA1C 8.5 (H) 02/02/2024 09:20 AM documented in this encounter Plan of Treatment Scheduled Procedures Name Priority Associated Diagnoses Date/Ti me COLONOSCOPY FLEXIBLE PROXIMAL DIAGNOSTIC Recall Screen for colon cancer Health Maintenance Due Date Last Done Comments Albumin/Creatinine Ratio 1989 Diabetic Eye Exam 1989 Diabetic Foot Exam 1989 Hepatitis B Vaccine (1 of 3 - 19+ 3-dose series) 1990 Cologuard 2016 Fecal Occult Blood Test 2016 05/04/2002 Sigmoidoscopy 2016 Pneumococcal Vaccine: Pediatrics (0 to 5 Years) and At-Risk Patients (6 to 64 Years) (2 of 2 - PPSV23 or PCV20) 10/25/2019 08/30/2019 Depression Screening 07/20/2023 07/20/2022 Influenza Vaccine (FLU shot) (#1) 2024 06/20/2023, 03/28/2022, 05/20/2021, Additional history exists HbA1c 08/04/2024 02/02/2024, 07/0 12/2022, 01/03/2022, Additional history exists GFR 02/01/2025 02/02/2024, 06/16, 03/28/2023, Additional history exists Colonoscopy 04/10/2028 04/10/2018, 04/10/2018 Colorectal Cancer Screening 04/10/2028 Lipid Panel 02/01/2029 02/02/2024, 03/17, 01/29/2021, Additional history exists DTap/Tdap Vaccines (4 - Td or Tdap) 08/30/2029 08/30/2019, 06/09/2008, 04/08/1996 RETIRED - COLONOSCOPY EVERY 10 YEARS,AGES 18-50 Discontinued 04/10/2018, 04/10/2018 Zoster Vaccines Completed 07/20/2022, 01/04/2022 COVID-19 Vaccine Completed 06/20/2023, 11/2021, 05/20/2021, Additional history exists HPV (Gardasil) Vaccine Aged Out No lo nger eligible based on patient's age to complete this topic MENINGOCOCCAL (MENACTRA/MENVEO) Aged Out No longer eligible based on patient's age to complete this topic documented as of this encounter Medical Devices Not on filedocumented as of this encounter Visit Diagnoses Diagnosis Mixed dyslipidemia Mixed hyperlipidemia documented in this encounter Care Teams Men'S Designer Relationship Specialty Start Date End Date Brian Quintero III, MD [address] [place] [address] PCP - General Family Medicine 01/23/15 documented as of this encounter
--- OUTSIDE RECORDS SUMMARY | 2024-03-14 08:14 | External Medical Summary | Summary of Care ---
Author Name Unknown Organization [facility] Address [address] [place] [address] Phone [phone] Care Team Providers Care Chain Sales Consultant Name Role Phone Bola BAE MD, Bashir Modi Primary Care Provider [phone] Encounter Details Date Type Department Care Team (Late st Contact Info) Description 02/19/2024 Orders Only Outcomes Research Department [address] [place] [address] Kerri Estes CHRA [facility] Research Other*[id number] Allergies Active Allergy Reactions Criticality Noted Date Comments Amoxicillin-Pot Clavulanate 12/21/2017 Interacts with methotrexate Sulfamethoxazole-Trimethop rim 12/21/2017 On methotrexate Penicillins 04/29/2002 told occurred as an infant Other reaction(s): reacts with methotrexate, Unknown documented as of this encounter (statuses as of 02/19/2024) Medications Medication Sig Dispensed Refills Start Date End Date Status DAILY MULTIVITAMIN PO TABSIndications:Rout ine medical exam 0 09/03/2008 Active VITAMIN C 100 MG PO TABS one daily Active FISH OIL 1000 MG PO CAPS one capsule daily Active polyethylene glycol 3350 (MIRALAX) 255 gram powderIndications:Ir ritable bowel syndrome with both constipation and diarrhea,Abdominal cramps Take 17 g by mouth daily. TAKE 17 G BY MOUTH DAILY. TAKE 17 G DAILY, ONE CAPFUL IN JUICE TO EFFECT 1 STOOL PER DAY 527 g 4 07/02/2018 Active Famotidine 20 MG Oral Tablet Take 1 Tablet by mouth in the morning and 1 Tablet before bedtime. Active Ondansetron HCl 4 MG Oral TabletIndications:Na usea Take 1 Tablet by mouth every 12 hours as needed for Nausea. 20 Tablet 5 08/05/2022 Active Loratadine 10 MG Oral Capsule (Claritin) Take 1 Capsule by mouth in the morning. Active Hyoscyamine Sulfate 0.125 MG Sublingual Tablet Sublingual (Levsin)Indications: Irritable bowel syndrome Take 1 Tablet by mouth every 6 hours as needed for Cramping. 360 Tablet 3 05/30/2023 Active hydrOXYzine HCl 50 MG Oral TabletIndications:Ge neralized anxiety disorder,Panic attack Take 1 Tablet by mouth daily as needed for Anxiety. 10 Tablet 1 05/30/2023 Active Folic Acid 1 MG Oral Tablet TAKE 1 TABLET BY MOUTH EVERY DAY IN THE MORNING 90 Tablet 3 06/26/2023 Active amLODIPine Besylate 2.5 MG Oral Tablet (Norvasc)Indications :Hypertension goal BP (blood pressure) < 130/80 Take 1 Tablet by mouth in the morning. 30 Tablet 5 10/12/2023 Active Methotrexate Sodium 2.5 MG Oral TabletIndications:Rh eumatoid arthritis involving multiple sites with positive rheumatoid factor (HCC) TAKE 3 TABLETS BY MOUTH WITH LUNCH AND 3 TABLETS WITH DINNER ON SUNDAYS, 78 Tablet 1 11/01/2023 Active metFORMIN HCl ER 500 MG Oral Tablet Extended Release 24 Hour (Glucophage XR) Take 1 Tablet by mouth daily. Active Mounjaro 2.5 MG/0.5ML Subcutaneous Solution Pen-injector (Tirzepatide)Indicat ions:Type 2 diabetes mellitus with hyperglycemia, without long-term current use of insulin ([facility]),Body mass index (BMI) of 45.0 to 49.9 in adult ([facility]) Inject 2.5 mg under the skin once a week. 2 mL 11 02/13/2024 02/12/2025 Active Atorvastatin Calcium 20 MG Oral Tablet (Lipitor)Indications :Mixed dyslipidemia Take 1 Tablet by mouth in the morning. 30 Tablet 5 02/13/2024 Active documented as of this encounter (statuses as of 02/19/2024) Active Problems Problem Noted Date Diagnosed Date [...] as of this encounter (statuses as of 02/19/2024) Resolved Problems Problem Noted Date Diagnosed Date Resolved Date Body mass index (BMI) of 40. 0 to 44.9 in adult 04/17/2017 06/01/2023 Overview: Per Obesity protocol #1 Obesity, Class II, BMI 35-39 .9, isolated (see actual BMI) 01/28/2011 04/20/2017 Overview: Per Obesity protocol #1 documented as of this encounter (statuses as of 02/19/2024) Immunizations Name Administration Dates Next Due COVID-19 mRNA, LNP-s, No Pre serve, 2-Dose Series ([employer]) 11/18/2021,05/20/2021,10/01/2020,09/17,08/27/2020 HEP A - Hepatitis A (Adult [...] on file documented as of this encounter Plan of Treatment Scheduled Orders Name Type Priority Associated Diagnoses Orde r Schedule MYCODE INITIAL ADULT Lab Routine MyCode Research Other*[id number] Expected: 02/19/2024 (Approximate), Expires: 03/10/2025 Scheduled Procedures Name Priority Associated Diagnoses Date/Ti [...] 02/01/2029 02/02/2024, 03/17, 01/29/2021, Additional history exists DTaP,Tdap,and Td Vaccines (4 - Td or Tdap) 08/30/2029 [...] as of this encounter Visit Diagnoses Diagnosis My[facility] Research Other*[id number] documented in this encounter Care Teams Chain Sales Consultant Relationship Specialty Start Date End Date Bashir Plaza III, MD [address] [place] [address] PCP - General Family Medicine 01/23/15 documented as of this encounter
--- OUTSIDE RECORDS SUMMARY | 2024-03-14 08:15 | External Medical Summary ---
Author Name Unknown Address Unknown Organization K09:[facility] [place] [address] Laboratory Report Ordering Provider Test Date Status NISH STALEY 02/02/2024 09:20:19 Final Observation Date Value Abnormality Reference (Units ) Status Nucleated erythrocytes/100 leukocytes [Ratio] in Blood by Automated count 02/02/2024 09:20:19 Final Variant lymphocytes [Presence] in Blood by Light microscopy 02/02/2024 09:20:19 Present Abnormal None Seen Final Performing Location [facility] [place] [place] [address]
--- OUTSIDE RECORDS SUMMARY | 2024-03-14 08:15 | External Medical Summary | Summary of Care ---
Author Name Unknown Organization [facility] Address [address] [place] [address] Phone [phone] Care Team Providers Care Vehicle Fuel Systems Converter Name Role Phone Bola BAE MD, Bashir Modi Primary Care Provider [phone] Encounter Details Date Type Department Care Team (Late st Contact Info) Description 01/03/2024 11:00 AM EDT Nurse Only Ancillary [facility] [address] [place] [address] Georgina, Nurse Fam [facility] [address] [place] [address] Arrived Allergies Active Allergy Reactions Criticality Noted Date Comments Amoxicillin-Pot Clavulanate 12/21/2017 Interacts with methotrexate Sulfamethoxazole-Trimethop rim 12/21/2017 On methotrexate Penicillins 04/29/2002 told occurred as an Other reaction(s): reacts with methotrexate, Unknown documented as of this encounter (statuses as of 01/03/2024) Medications Medication Sig Dispensed Refills Start Date End Date Status DAILY MULTIVITAMIN PO TABSIndications:Jasmine jarvis medical exam 0 09/03/2008 Active VITAMIN C 100 MG PO TABS one daily Active FISH OIL 1000 MG PO CAPS one capsule daily Active polyethylene glycol 3350 (MIRALAX) 255 gram powderIndications:I rritable bowel syndrome with both constipation and diarrhea,Abdominal cramps Take 17 g by mouth daily. TAKE 17 G BY MOUTH DAILY. TAKE 17 G DAILY, ONE CAPFUL IN JUICE TO EFFECT 1 STOOL PER DAY 527 g 4 07/02/2018 Active Famotidine 20 MG Oral Tablet Take 1 Tablet by mouth in the morning and 1 Tablet before bedtime. Active Ondansetron HCl 4 MG Oral TabletIndications:N ausea Take 1 Tablet by mouth every 12 hours as needed for Nausea. 20 Tablet 5 08/05/2022 Active Loratadine 10 MG Oral Capsule (Claritin) Take 1 Capsule by mouth in the morning. Active Hyoscyamine Sulfate 0.125 MG Sublingual Tablet Sublingual (Levsin)Indications :Irritable bowel syndrome Take 1 Tablet by mouth every 6 hours as needed for Cramping. 360 Tablet 3 05/30/2023 Active hydrOXYzine HCl 50 MG Oral TabletIndications:G eneralized anxiety disorder,Panic attack Take 1 Tablet by mouth daily as needed for Anxiety. 10 Tablet 1 05/30/2023 Active Folic Acid 1 MG Oral Tablet TAKE 1 TABLET BY MOUTH EVERY DAY IN THE MORNING 90 Tablet 3 06/26/2023 Active Rosuvastatin Calcium 10 MG Oral Tablet (Crestor)Indication s:Elevated LDL cholesterol level Take 1 Tablet by mouth in the morning. 90 Tablet 1 07/13/2023 Active Additional Information Patient not taking.Reported on 10/12/2023 amLODIPine Besylate 2.5 MG Oral Tablet (Norvasc)Indication s:Hypertension goal BP (blood pressure) < 130/80 Take 1 Tablet by mouth in the morning. 30 Tablet 5 10/12/2023 Active Methotrexate Sodium 2.5 MG Oral TabletIndications:R heumatoid arthritis involving multiple sites with positive rheumatoid factor (HCC) TAKE 3 TABLETS BY MOUTH WITH LUNCH AND 3 TABLETS WITH DINNER ON SUNDAYS, 78 Tablet 1 11/01/2023 Active documented as of this encounter (statuses as of 01/03/2024) Active Problems Problem Noted Date Diagnosed Date Hypertension goal BP (blood pressure) < 130/80 0 10/12/2023 Mixed dyslipidemia 10/12/2023 Body mass index (BMI) of 45.0 to 49.9 in adult 1 07/29/2022 Overview: Per Obesity protocol - Prediabetes 10/25/2021 Overview: Per Prediabetes protocol Ocular migraine 05/20/2020 Long-term use of high-risk medication 12/19/2018 History of basal cell carcinoma (BCC) 11/15/2017 Rheumatoid arthritis involvi ng multiple sites with positive rheumatoid factor 04/21/2017 Dermatographic urticaria 04/26/2011 Allergic rhinitis 03/02/2011 Obstructive sleep apnea syndrome 09/03/2008 Irritable bowel syndrome 04/29/2002 documented as of this encounter (statuses as of 01/03/2024) Resolved Problems Problem Noted Date Diagnosed Date Resolved Date Body mass index (BMI) of 40. 0 to 44.9 in adult 04/17/2017 06/01/2023 Overview: Per Obesity protocol #1 Obesity, Class II, BMI 35-39 .9, isolated (see actual BMI) 01/28/2011 04/20/2017 Overview: Per Obesity protocol #1 documented as of this encounter (statuses as of 01/03/2024) Immunizations Name Administration Dates Next Due COVID-19 mRNA, LNP-s, No Pre serve, 2-Dose Series (CogniSens) 11/18/2021,05/20/2021,10/01/2020,09/17,08/27/2020 HEP A - Hepatitis A (Adult [...] as of this encounter Plan of Treatment Upcoming Encounters Date Type Department Care Team (Late st Contact Info) Description 02/13/2024 11:20 AM EDT Office Visit Family Practice [facility] [place] [address] [facility] [place] [address] Gaby Trevizo MD [address] [facility] [place] [address] 03/29/2024 4:00 PM EDT Office Visit Rheumatology [facility] [email or web address] [place] [address] Eric Medrano MD [address] [place] [address] Scheduled Procedures Name Priority Associated Diagnoses Date/Ti me COLONOSCOPY FLEXIBLE PROXIMAL DIAGNOSTIC Recall Screen for colon cancer Health Maintenance Due Date Last Done Comments Albumin/Creatinine Ratio 1989 Hepatitis B (1 of 3 - 19+ 3-dose series) 1990 Cologuard 2016 Fecal Occult Blood Test 2016 05/04/2002 Sigmoidoscopy 2016 Pneumococcal Vaccine: Pediatrics (0 to 5 Years) and At-Risk Patients (6 to 64 Years) (2 of 2 - PPSV23 or PCV20) 10/25/2019 08/30/2019 Depression Screening 07/20/2023 07/20/2022 HbA1c 01/20/2024 01/19/2023, 12/16, 10/07/2021 GFR 07/01/2024 07/01/2023, 03/17, 01/19/2023, Additional history exists Lipid Panel 03/28/2028 03/28/2023, 01/14, 11/03/2016, Additional history exists Colonoscopy 04/10/2028 04/10/2018, 04/10/2018 Colorectal Cancer Screening 04/10/2028 DTaP,Tdap,and Td Vaccines (4 - Td or Tdap) 08/30/2029 08/30/2019, 06/09/2008, 04/08/1996 RETIRED - COLONOSCOPY EVERY 10 YEARS,AGES 18-50 Discontinued 04/10/2018, 04/10/2018 Zoster Vaccines Completed 07/20/2022, 01/04/2022 COVID-19 Vaccine Completed 06/20/2023, 11/2021, 05/20/2021, Additional history exists Influenza Vaccine (FLU shot) Completed 06/20/2023, 03/28/2022, 05/20/2021, Additional history exists GARDASIL-HPV IMMUNIZATION SERIES Aged Out No longer eligible based on patient's age to complete this topic MENINGOCOCCAL (MENACTRA/MENVEO) Aged Out No longer eligible based on patient's age to complete this topic documented as of this encounter Medical Devices Not on filedocumented as of this encounter Visit Diagnoses Diagnosis Need for vaccination- Primary Need for prophylactic vaccination and inoculation against unspecified single disease documented in this encounter Care Teams Vehicle Fuel Systems Converter Relationship Specialty Start Date End Date Bashir Plaza III, MD [address] [facility] [place] [address] PCP - General Family Medicine 01/23/15 documented as of this encounter
--- OUTSIDE RECORDS SUMMARY | 2024-03-14 08:15 | External Medical Summary | Summary of Care ---
Author Name Unknown Organization [facility] Address [address] [place] [address] Phone [phone] Care Team Providers Care Drug Safety Assistant Name Role Phone Bola BAE MD, Bashir Modi Primary Care Provider [phone] Reason for Visit * Reason Comments eRx-Medication Refill Encounter Details Date Type Department Care Team (Late st Contact Info) Description 01/11/2024 Refill Family Practice [facility] [address] [facility] [place] [address] Gaby Trevizo MD [address] [facility] [place] [address] Elevated LDL cholesterol level Allergies Active Allergy Reactions Criticality Noted Date Comments Amoxicillin-Pot Clavulanate 12/21/2017 Interacts with methotrexate Sulfamethoxazole-Trimethop rim 12/21/2017 On methotrexate Penicillins 04/29/2002 told occurred as an Other reaction(s): reacts with methotrexate, Unknown documented as of this encounter (statuses as of 01/11/2024) Medications Medication Sig Dispensed Refills Start Date [...] ON SUNDAYS, 78 Tablet 1 11/01/2023 Active Rosuvastatin Calcium 10 MG Oral Tablet (Crestor)Indicatio ns:Elevated LDL cholesterol level TAKE 1 TABLET BY MOUTH EVERY DAY IN THE MORNING 30 Tablet 1 01/11/2024 Active Rosuvastatin Calcium 10 MG Oral Tablet (Crestor)Indicatio ns:Elevated LDL cholesterol level Take 1 Tablet by mouth in the morning. 90 Tablet 1 07/13/2023 4 Discontinued documented as of this encounter (statuses as of 01/11/2024) Active Problems Problem Noted Date Diagnosed Date [...] as of this encounter (statuses as of 01/11/2024) Resolved Problems Problem Noted Date Diagnosed Date Resolved Date Body mass index (BMI) of 40. 0 to 44.9 in adult 04/17/2017 06/01/2023 Overview: Per Obesity protocol #1 Obesity, Class II, BMI 35-39 .9, isolated (see actual BMI) 01/28/2011 04/20/2017 Overview: Per Obesity protocol #1 documented as of this encounter (statuses as of 01/11/2024) Immunizations Name Administration Dates Next Due COVID-19 mRNA, LNP-s, No Pre serve, 2-Dose Series (MuckRock) 11/18/2021,05/20/2021,10/01/2020,09/17,08/27/2020 HEP A - Hepatitis A (Adult [...] encounter Miscellaneous Notes * Telephone Encounter - Edmar Gutierrez RP - 01/11/2024 11:52 AM EDT Signed Prescriptions: Disp Refills Rosuvastatin Calcium 10 MG Oral Tablet (Cr*30 Tab*1 Sig: TAKE 1 TABLET BY MOUTH EVERY DAY IN THE MORNINGAuthorizing Provider: Ritu TREVIZO User: EDMAR GUTIERREZ * Telephone Encounter - Edmar Gutierrez RPh - 01/11/2024 11:47 AM EDT Per office visit note 08/22/2023 "He stopped rosuvastatin about two weeks ago. 3. Mixed dyslipidemia Attempt to reintroduce rosuvastatin; unclear what has been causing his symptoms. We reviewed his ASCVD risk score." RX authorized. Refills given until upcoming appt. 02/13/2024 Thank You Edmar Gutierrez PharmD Clinical Pharmacist [facility] [phone] / [phone] 01/11/2024, 11:51 AM documented in this encounter Plan of Treatment Upcoming Encounters Date Type Department Care Team (Late st Contact Info) Description 02/13/2024 11:20 AM EDT Office Visit [facility] [address] [facility] [place] [address] Gaby Trevizo MD [address] [facility] [place] [address] 03/29/2024 4:00 PM EDT Office Visit Rheumatology [facility] [address] [place] [address] Eric Medrano MD [address] [place], [place] [address] Scheduled Procedures Name Priority Associated Diagnoses Date/Ti [...] as of this encounter Visit Diagnoses Diagnosis Elevated LDL cholesterol level Pure hypercholesterolemia documented in this encounter Care Teams Drug Safety Assistant Relationship Specialty Start Date End Date Bashir Plaza III, MD [address] [place] [address] PCP - General Family Medicine 01/23/15 documented as of this encounter
--- OUTSIDE RECORDS SUMMARY | 2024-03-14 08:15 | External Medical Summary ---
Author Name Unknown Address Unknown Organization [id number]:[facility] [place] [address] Laboratory Report Ordering Provider Test Date Status NISH STALEY 02/02/2024 09:20:19 Final Observation Date Value Abnormality Reference (Units ) Status SYNC LEUKOCYTES IN BLOOD BY AUTOMATED COUNT 02/02/2024 09:20:19 7.18 4.00-10.80 (K/uL) Final Segs 02/02/2024 09:20:19 45.8 40.0-75.0 (%) Final Lymphs % 02/02/2024 09:20:19 37.7 18.0-42.0 (%) Final Monos 02/02/2024 09:20:19 10.2 1.0-11.0 (%) Final Eosinophils 02/02/2024 09:20:19 5.3 0.0-6.0 (%) Final Basos 02/02/2024 09:20:19 1.0 0.0-2.0 (%) Final Absolute Segs 02/02/2024 09:20:19 3.29 1.80-7.70 (K/uL) Final Lymphs, absolute 02/02/2024 09:20:19 2.71 1.00-4.80 (K/ul) Final Monos, Abs 02/02/2024 09:20:19 0.73 0.00-1.10 (K/uL) Final Eos, Abs 02/02/2024 09:20:19 0.38 0.00-0.70 (K/uL) Final Basos, Abs 02/02/2024 09:20:19 0.07 0.00-0.20 (K/uL) Final Performing Location [facility] [place] [address]
--- OUTSIDE RECORDS SUMMARY | 2024-03-14 08:15 | External Medical Summary ---
Author Name Unknown Address Unknown Organization [id number]:[facility] [address] Laboratory Report Ordering Provider Test Date Status LUÍSRICK CRISTINACONI 02/02/2024 09:20:19 Final Observation Date Value Abnormality Reference (Units ) Status WBC, Total 02/02/2024 09:20:19 7.18 4.00-10.8 0 (K/uL) Final RBC 02/02/2024 09:20:19 5.06 4.50-5.25 (M/uL) Final Hemoglobin 02/02/2024 09:20:19 16.1 14.0-16.8 (g/dL) Final HCT 02/02/2024 09:20:19 47.1 40.0-48.4 (%) Final MCV 02/02/2024 09:20:19 93.1 82.0-99.5 (fL) Final MCH 02/02/2024 09:20:19 31.8 27.0-34.0 (pg) Final MCHC 02/02/2024 09:20:19 34.2 32.0-36.0 (g/dL) Final RDW 02/02/2024 09:20:19 13.1 11.5-15.5 (%) Final Platelets 02/02/2024 09:20:19 329 140-400 (K /uL) Final MPV 02/02/2024 09:20:19 9.6 6.6-11.1 ( fL) Final Performing Location [facility] [address]
--- OUTSIDE RECORDS SUMMARY | 2024-03-14 08:15 | External Medical Summary ---
Author Name Unknown Address Unknown Organization [id number]:[facility] [address] [place] [address] Laboratory Report Ordering Provider Test Date Status NISH STALEY 02/02/2024 09:20:19 Final Observation Date Value Abnormality Reference (Units ) Status BUN 02/02/2024 09:20:19 11 6-20 (mg/dL) Final Creatinine 02/02/2024 09:20:19 1.0 0.6-1.2 (mg/dL) Final Glomerular filtration rate/1.73 sq M.predicted [Volume Rate/Area] in Serum, Plasma or Blood by Creatinine-based formula (CKD-EPI) 02/02/2024 09:20:19 >90 >=60 (mL/min) Final eGFR is calculated based on the CKD-EPI 2020 equation. Sodium 02/02/2024 09:20:19 139 135-146 (m mol/L) Final Potassium 02/02/2024 09:20:19 4.6 3.5-5.1 (m mol/L) Final Cl 02/02/2024 09:20:19 100 98-107 (mm ol/L) Final CO2 02/02/2024 09:20:19 26 22-32 (mmo l/L) Final Anion gap 02/02/2024 09:20:19 13 7-15 (mmol /L) Final Glucose 02/02/2024 09:20:19 192 Above high normal 70 -120 (mg/dL) Final Albumin 02/02/2024 09:20:19 4.2 3.8-5.0 (g /dL) Final AST (Aspartate aminotransferase) 02/02/2024 09:20:19 20 10-50 (U/L) Fin al Alk Phos 02/02/2024 09:20:19 88 35-130 (U/ L) Final Bilirubin, Total 02/02/2024 09:20:19 0.5 <=1 .2 (mg/dL) Final Calcium 02/02/2024 09:20:19 9.9 8.4-10.2 ( mg/dL) Final Protein 02/02/2024 09:20:19 7.3 6.0-8.3 (g /dL) Final ALT (Alanine aminotransferase) 02/02/2024 09:20:19 28 10-50 (U/L) Paresh hung Performing Location [facility] [address] [place] [address]
--- OUTSIDE RECORDS SUMMARY | 2024-03-14 08:15 | External Medical Summary ---
Author Name Unknown Address Unknown Organization [id number]:[facility] [place] - [address] [facility] [place] [address] Laboratory Report Ordering Provider Test Date Status MARY SCHULZ 02/02/2024 09:20:19 Final Observation Date Value Abnormality Reference (Units ) Status HbA1C 02/02/2024 09:20:19 8.5 Above high normal 4. 0-5.6 (%) Final The use of HbA1c to monitor glycemic status is based on normal hemoglobin and HbA composition. This test should not be used in patients with abnormal hemoglobin that affects the half life of the red blood cell or the in vivo glycation rates. Glucose, estimated average 02/02/2024 09:20:19 197 Above high normal <126 (mg/dL) Paresh hung Performing Location [facility] [place] - [address] [facility] [place] [address]
--- OUTSIDE RECORDS SUMMARY | 2024-03-14 08:15 | External Medical Summary | Summary of Care ---
Author Name Unknown Organization [facility] Address [address] [place] [address] Phone [phone] Care Team Providers Care Verification Engineer Name Role Phone Bola BAE MD, Bashir Modi Primary Care Provider [phone] Reason for Referral * Medication Prior Authorization - Pending Review Specialty Diagnoses / Procedures Referred By Contac t Referred To Contact Diagnoses Type 2 diabetes mellitus with hyperglycemia, without long-term current use of insulin (HCC) Body mass index (BMI) of 45.0 to 49.9 in adult (HCC) Gaby Trevizo MD [address] [place] [address] Referral ID Status Reason Start Date Expiration Date V isits Requested Visits Authorized [id number] Pending Review 999 999 Reason for Visit * Reason Comments Re-Check Encounter Details Date Type Department Care Team (Late st Contact Info) Description 02/13/2024 11:20 AM EDT Office Visit Family Practice [facility] [address] [place] [address] Gaby Trevizo MD [address] [place] [address] Type 2 diabetes mellitus with hyperglycemia, without long-term current use of insulin (HCC)*; Hypertension goal BP (blood pressure) < 130/80; Body mass index (BMI) of 45.0 to 49.9 in adult ([facility]); Mixed dyslipidemia; Rheumatoid arthritis involving multiple sites with positive rheumatoid factor (HCC); Globus sensation Allergies Active Allergy Reactions Criticality Noted Date Comments Amoxicillin-Pot Clavulanate 12/21/2017 Interacts with methotrexate Sulfamethoxazole-Trimethop rim 12/21/2017 On methotrexate Penicillins 04/29/2002 told occurred as an infant Other reaction(s): reacts with methotrexate, Unknown documented as of this encounter (statuses as of 02/13/2024) Medications Medication Sig Dispensed Refills Start Date End Date Status DAILY MULTIVITAMIN PO TABSIndications:Lisa christy medical exam 0 09/03/2008 Active VITAMIN C [...] (BMI) of 45.0 to 49.9 in adult (HCC) Inject 2.5 mg under the skin once a week. 2 mL 11 02/13/2024 5 Active Atorvastatin Calcium 20 MG Oral Tablet (Lipitor)Indicatio ns:Mixed dyslipidemia Take 1 Tablet by mouth in the morning. 30 Tablet 5 02/13/2024 Active Rosuvastatin Calcium 10 MG Oral Tablet (Crestor)Indicatio ns:Elevated LDL cholesterol level TAKE 1 TABLET BY MOUTH EVERY DAY IN THE MORNING 30 Tablet 1 01/11/2024 4 Discontinued documented as of this encounter (statuses as of 02/13/2024) Active Problems Problem Noted Date Diagnosed Date [...] as of this encounter (statuses as of 02/13/2024) Resolved Problems Problem Noted Date Diagnosed Date Resolved Date Body mass index (BMI) of 40. 0 to 44.9 in adult 04/17/2017 06/01/2023 Overview: Per Obesity protocol #1 Obesity, Class II, BMI 35-39 .9, isolated (see actual BMI) 01/28/2011 04/20/2017 Overview: Per Obesity protocol #1 documented as of this encounter (statuses as of 02/13/2024) Immunizations Name Administration Dates Next Due COVID-19 mRNA, LNP-s, No Pre serve, 2-Dose Series ([employer]) 11/18/2021,05/20/2021,10/01/2020,09/17,08/27/2020 HEP A - Hepatitis A (Adult [...] on file documented as of this encounter Last Filed Vital Signs Vital Sign Reading Time Taken Comments Blood Pressure 144/78 02/13/2024 11:27 AM EDT Pulse 109 02/13/2024 11:27 AM EDT Temperature 36.3 C (97.3 F) 02/13/2024 1 1:27 AM EDT Respiratory Rate 22 02/13/2024 11:2 7 AM EDT Oxygen Saturation 97% 02/13/2024 11: 27 AM EDT Inhaled Oxygen Concentration - - Weight 152.9 kg (337 lb 1.3 oz) 024 11:27 AM EDT Height - - Body Mass Index 45.72 10/12/2023 2:17 PM EDT documented in this encounter Progress Notes * Gaby Trevizo MD - 02/13/2024 11:27 AM EDT Subjective Chief Complaint Patient presents with Re-Check HPI: Glen Anderson is a 53 year old male. Patient is unaccompanied. The following issues were addressed today: Feels sensation of something stuck in his throat. Occurs several times a week. Has been going on for years. Had EGD and swallowing study in 2013 and 2014 which were mostly normal, some esophageal dysmotility on the swallow study. Saw GI, thought more of a sinus problem. Saw ENT, advised to start PPI and Flonase. He is not currently on Flonase and cannot remember why he stopped. Hgb A1c increased from 5.7% last year to 8.5% recently. He is not on any medications for DM. Was onMetformin 500mg last year. When he increased to 1000mg he felt fatigued and tired. Ended up stopping medication overall. Would be willing to restart Metformin 500mg again. Was on Saxenda years ago but stopped because it did not make him want to eat at all. States he has been eating more vegetables in the past month and a half and cut out a lot of snack. Has been on and off statin and antihypertensives due to side effects. Currently taking 5mg amlodipine. Was having dry mouth and coughing fits on Crestor. Would be willing to try Lipitor. The 10-year ASCVD risk score (Pamela DK, et al., 2019) is: 17.8% Values used to calculate the score: Age: 53 years Sex: Male Is Non- : No Diabetic: Yes Tobacco smoker: No Systolic Blood Pressure: 144 mmHg Is BP treated: Yes HDL Cholesterol: 37 mg/dL Total Cholesterol: 229 mg/dL Review of Systems: See HPI Objective BP 144/78 | Pulse 109 | Temp 36.3 C (97.3 F) (Tympanic) | Resp 22 | Wt (!) 152.9 kg (337 lb 1.3oz) | SpO2 97% | BMI 45.72 kg/m | BSA 2.79 m Wt Readings from Last 3 Encounters: 02/13/24 (!) 152.9 kg (337 lb 1.3 oz) 10/12/23 (!) 154.7 kg (341 lb 1.3 oz) 09/05/23 (!) 154.7 kg (341 lb) BP Readings from Last 3 Encounters: 02/13/24 144/78 10/12/23 138/78 09/05/23 130/80 General: Well-appearing, no acute distress Neurological: Alert and oriented, no focal deficits noted Psychiatric: Appropriate mood and affect Hemoglobin AIC Results: Lab Results Component Value Date/Time HEMOGLOBIN A1C - [facility] 8.5 (H) 02/02/2024 09:20 AM HEMOGLOBIN A1C - [facility] 5.7 (H) 01/19/2023 01:04 PM HEMOGLOBIN A1C - [facility] 5.6 01/03/2022 11:31 AM Lipid Panel Results: Results for orders placed or performed in visit on 02/02/24 LIPID PANEL WITH DIRECT LDL IF TG IS HIGH Result Value Ref Range Triglycerides 265 (H) <=174 mg/dL Cholesterol 229 (H) <200 mg/dL HDL Cholesterol 37 (L) >39 mg/dL Non-HDL Cholesterol 192 (H) <=159 mg/dL LDL Cholesterol 139 (H) <=129 mg/dL Assessment & Plan 1. Type 2 diabetes mellitus with hyperglycemia, without long-term current use of insulin (HCC) Restart Metformin. Dietary changes discussed. He declines referral to outside collector at this time. We discussed potential benefits and risks of initiating GLP-1 and GLP-1/GIP agonist medication. We also discussed the expected outcomes, potential side effects, and the need for adherence to medication and lifestyle modifications such as healthy diet and regular physical activity. Based on the patient's medical history, individualized needs, and shared decision making, I have decided to prescribeMounjaro. The starting dose will be 2.5mg, administered weekly. The patient was educated on proper injection technique and storage. The patient will be scheduled for regular follow-up appointments toassess their response to medication, review any side affects, and make any necessary adjustments tothe treatment plan. Repeat Hgb A1c in 3 months and check albumin/Cr ratio. - Mounjaro 2.5 MG/0.5ML Subcutaneous Solution Pen-injector (Tirzepatide); Inject 2.5 mg under the skin once a week. Dispense: 2 mL; Refill: 11 - HEMOGLOBIN A1C; Future - ALBUMIN / CREATININE RATIO, URINE; Future 2. Hypertension goal BP (blood pressure) < 130/80 Well-controlled. Continue amlodipine. - ALBUMIN / CREATININE RATIO, URINE; Future 3. Body mass index (BMI) of 45.0 to 49.9 in adult (HCC) Diet and exercise discussed. Plan to start Mounjaro for DM. - Mounjaro 2.5 MG/0.5ML Subcutaneous Solution Pen-injector (Tirzepatide); Inject 2.5 mg under the skin once a week. Dispense: 2 mL; Refill: 11 4. Mixed dyslipidemia Reviewed recent results, LDL >190, ASCVD risk score <17%. Off of Crestor. Willing to try another statin, will start Lipitor 20mg. Repeat lipid panel in 3 months. - Atorvastatin Calcium 20 MG Oral Tablet (Lipitor); Take 1 Tablet by mouth in the morning. Dispense: 30 Tablet; Refill: 5 - LIPID PANEL WITH DIRECT LDL IF TG IS HIGH; Future 5. Rheumatoid arthritis involving multiple sites with positive rheumatoid factor (HCC) Stable. Continue MTX, folic acid. Follows with rheum. 6. Globus sensation Recommended restarting Flonase. Continue Claritin. Return in about 3 months (around 05/15/2024) for routine follow-up with labs before. This note was electronically signed by Gaby Trevizo MD documented in this encounter Nursing Notes * Lo Good LPN - 02/13/2024 11:25 AM EDT Glen Anderson presents for 4 month recheck. Medications & HM reviewed. Having some difficulty swallowing occasionally. documented in this encounter Plan of Treatment Scheduled Orders Name Type Priority Associated Diagnoses Orde r Schedule HEMOGLOBIN A1C Lab Routine Type 2 diabetes mellitus with hyperglycemia, without long-term current use of insulin (HCC) Expected: 05/15/2024 (Approximate), Expires: 02/12/2025 LIPID PANEL WITH DIRECT LDL IF TG IS HIGH Lab Routine Mixed dyslipidemia Expected: 05/15/2024 (Approximate), Expires: 02/12/2025 ALBUMIN / CREATININE RATIO, URINE Lab Routine Type 2 diabetes mellitus with hyperglycemia, without long-term current use of insulin (HCC) Hypertension goal BP (blood pressure) < 130/80 Expected: 05/15/2024, Expires: 02/12/2025 Scheduled Procedures Name Priority Associated Diagnoses Date/Ti me COLONOSCOPY FLEXIBLE PROXIMAL DIAGNOSTIC Recall Screen for colon cancer Health Maintenance Due Date Last Done Comments HIV Screening 1986 Albumin/Creatinine Ratio 1989 Diabetic Eye Exam 1989 [...] Td or Tdap) 08/30/2029 08/30/2019, 06/09/2008, 04/08/1996 Hepatitis C Screening Completed 09/06/2016 RETIRED - COLONOSCOPY EVERY 10 YEARS,AGES 18-50 [...] as of this encounter Visit Diagnoses Diagnosis Type 2 diabetes mellitus with hyperglycemia, without long-term current use of insulin (HCC)- Primary Hypertension goal BP (blood pressure) < 130/80 Unspecified essential hypertension Body mass index (BMI) of 45.0 to 49.9 in adult (HCC) Mixed dyslipidemia Mixed hyperlipidemia Rheumatoid arthritis involving multiple sites with positive rheumatoid factor (HCC) Globus sensation Gastrointestinal malfunction arising from mental factors documented in this encounter Care Teams Verification Engineer Relationship Specialty Start Date End Date Bashir Plaza III, MD [address] [place] [address] PCP - General Family Medicine 01/23/15 documented as of this encounter"
--- OUTSIDE RECORDS SUMMARY | 2024-03-14 08:15 | External Medical Summary | Summary of Care ---
Author Name Unknown Organization [facility] Address [address] [place] [address] Phone [phone] Care Team Providers Care Maintenance Technician 2Nd Shift Name Role Phone Bola BAE MD, Bashir Modi Primary Care Provider [phone] Reason for Visit * Reason Comments Outpatient Testing Encounter Details Date Type Department Care Team (Late st Contact Info) Description 02/02/2024 9:30 AM EDT Laboratory Laboratory [facility] [address] [place] [id number] [place], [facility] [address] [place] [address] Rheumatoid arthritis involving multiple sites with positive rheumatoid factor (HCC); Long-term use of high-risk medication; Mixed dyslipidemia; Prediabetes Allergies Active Allergy Reactions Criticality Noted Date Comments Amoxicillin-Pot Clavulanate 12/21/2017 Interacts with methotrexate Sulfamethoxazole-Trimethop rim 12/21/2017 On methotrexate Penicillins 04/29/2002 told occurred as an Other reaction(s): reacts with methotrexate, Unknown documented as of this encounter (statuses as of 02/02/2024) Medications Medication Sig Dispensed Refills Start Date End Date Status DAILY MULTIVITAMIN PO TABSIndications:Todd fuller medical exam 0 09/03/2008 Active VITAMIN C 100 MG PO TABS one daily Active FISH OIL 1000 MG PO CAPS one capsule daily Active polyethylene glycol 3350 (MIRALAX) 255 gram powderIndications:Irr itable bowel syndrome with both constipation and diarrhea,Abdominal cramps Take 17 g by mouth daily. TAKE 17 G BY MOUTH DAILY. TAKE 17 G DAILY, ONE CAPFUL IN JUICE TO EFFECT 1 STOOL PER DAY 527 g 4 07/02/2018 Active Famotidine 20 MG Oral Tablet Take 1 Tablet by mouth in the morning and 1 Tablet before bedtime. Active Ondansetron HCl 4 MG Oral TabletIndications:Brian sea Take 1 Tablet by mouth every 12 hours as needed for Nausea. 20 Tablet 5 08/05/2022 Active Loratadine 10 MG Oral Capsule (Claritin) Take 1 Capsule by mouth in the morning. Active Hyoscyamine Sulfate 0.125 MG Sublingual Tablet Sublingual (Levsin)Indications:I rritable bowel syndrome Take 1 Tablet by mouth every 6 hours as needed for Cramping. 360 Tablet 3 05/30/2023 Active hydrOXYzine HCl 50 MG Oral TabletIndications:Gen eralized anxiety disorder,Panic attack Take 1 Tablet by mouth daily as needed for Anxiety. 10 Tablet 1 05/30/2023 Active Folic Acid 1 MG Oral Tablet TAKE 1 TABLET BY MOUTH EVERY DAY IN THE MORNING 90 Tablet 3 06/26/2023 Active amLODIPine Besylate 2.5 MG Oral Tablet (Norvasc)Indications: Hypertension goal BP (blood pressure) < 130/80 Take 1 Tablet by mouth in the morning. 30 Tablet 5 10/12/2023 Active Methotrexate Sodium 2.5 MG Oral TabletIndications:Rhe umatoid arthritis involving multiple sites with positive rheumatoid factor (HCC) TAKE 3 TABLETS BY MOUTH WITH LUNCH AND 3 TABLETS WITH DINNER ON SUNDAYS, 78 Tablet 1 11/01/2023 Active Rosuvastatin Calcium 10 MG Oral Tablet (Crestor)Indications: Elevated LDL cholesterol level TAKE 1 TABLET BY MOUTH EVERY DAY IN THE MORNING 30 Tablet 1 01/11/2024 Active documented as of this encounter (statuses as of 02/02/2024) Active Problems Problem Noted Date Diagnosed Date [...] as of this encounter (statuses as of 02/02/2024) Resolved Problems Problem Noted Date Diagnosed Date Resolved Date Body mass index (BMI) of 40. 0 to 44.9 in adult 04/17/2017 06/01/2023 Overview: Per Obesity protocol #1 Obesity, Class II, BMI 35-39 .9, isolated (see actual BMI) 01/28/2011 04/20/2017 Overview: Per Obesity protocol #1 documented as of this encounter (statuses as of 02/02/2024) Immunizations Name Administration Dates Next Due COVID-19 mRNA, LNP-s, No Pre serve, 2-Dose Series ([employer]) 11/18/2021,05/20/2021,10/01/2020,09/17,08/27/2020 HEP A - Hepatitis A (Adult [...] 11:20 AM EDT Office Visit Family Practice [facility] [address] [facility] [place] [address] Gaby Trevizo MD [address] [facility] [place] [phone] 03/29/2024 4:00 PM EDT Office Visit Rheumatology [place] [id number] [place] [address] Eric Medrano MD [address] [place] [address] Pending Results Name Type Priority Associated Diagnoses Date /Time CBC WITH WBC DIFFERENTIAL Lab Routine Rheumatoid arthritis involving multiple sites with positive rheumatoid factor (HCC) Long-term use of high-risk medication 02/02/2024 9:20 AM EDT COMPREHENSIVE METABOLIC PANEL Lab Routine Rheumatoid arthritis involving multiple sites with positive rheumatoid factor (HCC) Long-term use of high-risk medication 02/02/2024 9:20 AM EDT LIPID PANEL WITH DIRECT LDL IF TG IS HIGH Lab Routine Mixed dyslipidemia 02/02/2024 9:20 AM EDT HEMOGLOBIN A1C Lab Routine Prediabetes 02/02/2024 9:20 AM EDT CBC Lab Routine Rheumatoid arthritis involving multiple sites with positive rheumatoid factor (HCC) Long-term use of high-risk medication 02/02/2024 9:20 AM EDT DIFFERENTIAL, AUTOMATED Lab Routine Rheumatoid arthritis involving multiple sites with positive rheumatoid factor (HCC) Long-term use of high-risk medication 02/02/2024 9:20 AM EDT Scheduled Procedures Name Priority Associated Diagnoses Date/Ti me COLONOSCOPY FLEXIBLE PROXIMAL DIAGNOSTIC Recall Screen for colon cancer Health Maintenance Due Date Last Done Comments Albumin/Creatinine Ratio 1989 Hepatitis B Vaccine (1 of 3 - 19+ 3-dose series) 1990 Cologuard 2016 Fecal Occult Blood Test 2016 05/04/2002 Sigmoidoscopy 2016 Pneumococcal Vaccine: Pediatrics (0 to 5 Years) and At-Risk Patients (6 to 64 Years) (2 of 2 - PPSV23 or PCV20) 10/25/2019 08/30/2019 Depression Screening 07/20/2023 07/20/2022 HbA1c 01/20/2024 01/19/2023, 12/16, 10/07/2021 Influenza Vaccine (FLU shot) (#1) 2024 06/20/2023, 03/28/2022, 05/20/2021, Additional history exists GFR 07/01/2024 07/01/2023, 03/17, 01/19/2023, Additional history [...] as of this encounter Visit Diagnoses Diagnosis Rheumatoid arthritis involving multiple sites with positive rheumatoid factor (HCC) Long-term use of high-risk medication Mixed dyslipidemia Mixed hyperlipidemia Prediabetes Other abnormal glucose documented in this encounter Care Teams Maintenance Technician 2Nd Shift Relationship Specialty Start Date End Date Bashir Plaza III, MD [address] [place] [address] PCP - General Family Medicine 01/23/15 documented as of this encounter
--- OUTSIDE RECORDS SUMMARY | 2024-03-14 08:15 | External Medical Summary ---
Author Name Unknown Address Unknown Organization [id number]:[facility] - [address] [facility] [facility] [address] Laboratory Report Ordering Provider Test Date Status MARY SCHULZ 02/02/2024 09:20:19 Final Observation Date Value Abnormality Reference (Units ) Status Triglyceride 02/02/2024 09:20:19 265 Above high normal <=174 (mg/dL) Final Triglyceride Reference Range s (mg/dL):
<150 Acceptable
150-174 Borderline high
175-499 High
>=500 Very high Cholesterol 02/02/2024 09:20:19 229 Above high normal <200 (mg/dL) Final Total Cholesterol Reference Ranges (mg/dL):
<200 Desirable
200-239 Borderline high
>=240 High HDL 02/02/2024 09:20:19 37 Below low normal >39 (mg/dL) Final HDL Cholesterol Reference Ra nges (mg/dL):
>=60 High (Desirable)
<50 Low (Undesirable) For Females
<40 Low (Undesirable) For Males NON-HDL CHOLESTEROL 02/02/2024 09:20:19 192 Above high normal <=159 (mg/dL) Final Non-HDL Cholesterol Referenc e Range (mg/dL):
<100 Target level for high risk ASCVD patient
<130 Optimal for general population
130-159 Near optimal for general population
160-189 Borderline High
190-219 High
>=220 Very High LDL, (calculated) 02/02/2024 09:20:19 139 Above high n ormal <=129 (mg/dL) Final LDL Cholesterol Reference Ra nges (mg/dL):
<70 Target level for high risk ASCVD patient
<100 Optimal for general population
100-129 Near optimal for general population
130-159 Borderline high
160-189 High
>=190 Very high Performing Location [facility] [place] [address] [facility] [address]
--- NOTE | 2024-03-14 08:42 | XRay Report ---
XR chest 2V PA/lateral HISTORY: weakness COMPARISON: Chest 03/15/2015. FINDINGS: No focal lung consolidations to suggest a pneumonia. No evidence for pulmonary edema. The h eart is normal in size. No acute fractures identified. Questionable 12 mm right apical nodular densit y. IMPRESSION: 1. No acute process within the chest. 2. Questionable 12 mm right apical nodule which is likely due to to overlying artifact. Repeat noneme rgent PA and lateral views of the chest are recommended for further evaluation. 3. This report was called/faxed to the patient's referring physician following dictation. ACT 112: Negative or not required by law. Electronically signed by: Clint Cabrera M.D. 03/14/2024 8:41 AM
[2024-03-14] MEDS ORDERED: LANTUS PER UNIT CHARGE SQ SCH (09:00)
[2024-03-14] MEDS: ASCORBIC ACID 500 MG TAB PO SCH (09:03)
[2024-03-14] MEDS: amLODIPine BESYLATE 5 MG TAB PO SCH (09:03)
[2024-03-14] MEDS: ATORVASTATIN 20 MG TAB PO SCH (09:04)
[2024-03-14] MEDS: MULTIVITAMIN TAB PO SCH (09:04)
[2024-03-14] MEDS: FAMOTIDINE 20 MG TAB PO SCH (09:04)
[2024-03-14] MEDS: FOLIC ACID 1 MG TAB PO SCH (09:04)
[2024-03-14] MEDS: POLYETHYLENE (MIRALAX) 17 GM PACK PO SCH (09:05)
[2024-03-14] MEDS: LANTUS PER UNIT CHARGE SQ SCH ×2 (09:08→20:39)
[2024-03-14] MEDS: INSULIN ASPART PER UNIT CHARGE SC SCH ×2 (09:10→23:02)
--- NOTE | 2024-03-14 09:34 | Pharmacy Report ---
Pharmacy Glycemic Short Note 2 - Date of Service March 14, 2024 - Glycemic Short BSG Results (Last 24 hours): 03/13/24 03/13/24 03/14/24 21:31 22:05 00:00 Glucose 474 H* POC Glucose 402 H* 363 H* 03/14/24 03/14/24 03/14/24 04:37 06:23 06:35 Glucose 271 H POC Glucose 232 H 247 H 03/14/24 07:32 Glucose POC Glucose 272 H OUTPATIENT ANTIDIABETIC REGIMEN: * metformin 500 mg daily ASSESSMENT: * 53 year old male admitted with hyperglycemia. Type 2 diabetic. Per notes, previously on metformin last year but only took for a month and stopped it due to fatigue. Recently saw PCP and metformin was restarted about a week ago. Also prescribed Mounjaro but awaiting insurance approval. * Received 10 units IV insulin early this AM and BSGs improving down to 200s range. * Given Lantus 20 units x 1 this AM (0.2 units/kg) and started on novolog weight based stress of 2. * A1c now returning later this AM and resulted as 11%. Likely will need to titrate up insulin, however will see how BSGs trend today before making changes. PLAN FOR INPATIENT GLYCEMIC CONTROL: * Hold outpatient oral diabetes medications * Basal insulin * Lantus 20 units x 1 * Bolus insulin * NovoLog per scale ACHS or Q6hrs while NPO * Goal Range: Low 110 mg/dL - High 140 mg/dL * Correction Factor: 20 mg/dL/unit * Nutritional / Prandial insulin per carb ratio of 1 unit per 7 grams CHO consumed
[2024-03-14] MEDS: LOSARTAN POTASSIUM 25 MG TAB PO SCH (11:34)
--- NOTE | 2024-03-14 12:19 | Communication Note ---
Date of Service: March 14, 2024 Patient seen and examined Reports increased blurry vision recently for which he saw an Eye Dr who told him it was due to hyperglycemia. He reports he just recently resumed metformin. Reviewed outpatient HbA1c. Had been 5.7 - 6.2 in 2021 - 2022 but increased to 8.5 last month HbA1c today is 11 Patient will need insulin plus oral antidiabetic Will likely do once daily lantus plus metformin on DC Provided DM education regarding insulin, diet, weight loss, exercise He reports he has a electronic integrated systems mechanic he used to follow for weight loss in the past but stopped. He plans to resume that. Continue ISS and lantus while inpt Monitor blood glucose DM educator consulted CXR noted ?nodule and recommends getting PA/lateral film. CXR PA/lateral ordered Reported he was on lisinopril but stopped due to cough Stop amlodipine 2.5mg and start losartan He will need close follow up with PCP Other plans as detailed in H/P
[2024-03-14] MEDS: LANTUS PER UNIT CHARGE SQ ONE (13:41)
--- NOTE | 2024-03-14 17:04 | XRay Report ---
TWO VIEW CHEST CLINICAL HISTORY: Possible right upper lobe nodule. FINDINGS: PA and lateral chest radiographs are compared to study performed earlier the same day 2023. The cardiomediastinal silhouette is unremarkable. The lungs and pleural spaces are clear. Ther e is no pneumothorax. The bony thorax appears intact. IMPRESSION: 1. No active disease in the chest. 2. The right upper lobe nodular opacity questioned previously is no longer visualized and may have be en artifactual. ACT 112: Negative or not required by law. Electronically signed by: Celio Rawls M.D. 03/14/2024 5:03 PM
[2024-03-14 20:38] VITALS: O2SAT 95
--- NOTE | 2024-03-14 22:19 | Electrocardiogram Report ---
Test Reason : Blood Pressure : */* mmHG Vent. Rate : 89 BPM Atrial Rate : 89 BPM P-R Int : 180 ms QRS Dur : 114 ms QT Int : 352 ms P-R-T Axes : 31 23 -7 degrees QTcB Int : 428 ms Normal sinus rhythm Poor R wave progression, consider anterior IL vs. lead placement vs. LVH Abnormal ECG When compared with ECG of 15-Mar-2015 19:31, No significant change was found Confirmed by Kris Gonsalves ([id number]) on 03/14/2024 10:19:20 PM Referred By: REFERRED SELF Confirmed By: Kris Gonsalves
[2024-03-15 07:52] VITALS: RESP 19; TEMP 97.9
[2024-03-15 08:49] LABS: BUN Creatinine Ratio 8.4 (10-20); Calcium 8.6 mg/dl (8.6-10.3); Creatinine Clr Calc Pharmacy 158.2 ml/min; Est GFR (African American) 117.3 ml/min; Est GFR (Non-African American) 101.2 ml/min; Potassium 3.9 mmol/L (3.5-5.1)
[2024-03-15] MEDS: LANTUS PER UNIT CHARGE SC SCH (09:19)
[2024-03-15 09:23] LABS: Hematocrit (blood only) 45.5 % (42.0-52.0); Hemoglobin 16.1 g/dl (14.0-18.0); Mean Corpuscular Hemoglobin 31.4 pg (25.0-34.0); Mean Corpuscular Hgb Conc 35.4 g/dL (32.0-36.0); Mean Corpuscular Volume 88.9 fL (80.0-100.0); Platelet Count 315 K/uL (130-400); RDW Coefficient of Variation 13.1 % (11.5-14.5); RDW Standard Deviation 41.6 fL (36.4-46.3); Red Blood Count 5.12 M/uL (4.70-6.10); White Blood Count 5.99 K/ul (4.8-10.8)
--- NOTE | 2024-03-15 11:52 | Discharge Summary ---
Date of Service March 15, 2024 Admission HPI Per Admitting Provider 53-year-old male with past medical history significant for type 2 diabetes, hyperlipidemia, obstructive sleep apnea, allergic rhinitis, hypertension, obesity, irritable bowel syndrome, history of basal cell carcinoma, history of dermatographic urticaria, history of ocular migraine, history of rheumatoid arthritis, presents with hyperglycemia. Patient says he was on metformin last year but took only for 1 month and stopped it because felt it was causing fatigue. Recently saw PCP and his HbA1c was increased from 5.7 last year to 8.5. Seems/when his metformin was increased to 1000 mg he felt fatigued and tired. Metformin 500 mg was restarted about a week ago. He was also prescribed Mounjaro but patient states not sure if insurance approved it yet. But his sugars were running high at home and came to the ER. Sugars are running in the 400s in the ER. Had a lot of blurred visions from high sugars. Denies any headache. No dizziness. No runny nose or sore throat, no cough. No fevers. No chest pain or shortness of breath. No nausea or abdominal pain. Normal bowel and bladder movements. Ambulating okay. Currently resting comfortably and hemodynamically stable. Past medical history. As mentioned above Past surgical history. Colonoscopy. Dental surgery. EGD Social history. . No smoking. No alcohol use. No drug use. Family history. Aunt has rheumatoid arthritis. Mother has rheumatoid arthritis. A-fib, IBS, stroke. Father has bipolar 2 disorder, diabetes. Admission Exam Per Admitting Provider General- Not in distress Head- atraumatic Eyes- PERRL. ENT- oropharynx clear Neck- supple, no JVD. Lungs- clear to auscultation no wheezing or crackles Heart- regular rate and rhythm; no murmur, no gallop. Abdomen- normal bowel sounds, soft, nontender, no distension Extremities- no pretibial edema, no erythema seen Neuro- alert, oriented ; PERRL, no facial palsy; no dysarthria; moves extrem ities. Principal Diagnosis Poorly controlled Diabetes mellitus Hypertension Discharge Exam Constitutional + well hydrated and + obese; no acute distress Eyes PERRL, conjunctivae normal, anicteric sclerae ENMT external ear and nose normal, oropharynx normal Respiratory normal respiratory effort, lungs clear to auscultation Cardiovascular Rate/Rhythm: regular rate and regular rhythm Gastrointestinal (Abdomen) normal bowel sounds, soft, nontender, no hepatosplenomegaly Musculoskeletal no cyanosis or clubbing, extremities motor strength 5/5 Neurologic PERRL, EOMI, accommodation nl, no face palsy, no dysarthria Psychiatric A+Ox3, euthymic affect Discharge Data Allergies Allergy/AdvReac Type Severity Reaction Status Date / Time Penicillins Allergy Unknown HAPPENED Verified 03/14/24 00:31 A CHILD amoxicillin [From Augmentin] AdvReac Unknown reacts Verified 03/14/24 00:31 with methotrexate clavulanic acid AdvReac Unknown reacts Verified 03/14/24 00:31 [From Augmentin] with methotrexate sulfamethoxazole AdvReac Unknown reacts Verified 03/14/24 00:31 [From Bactrim] with methotrexate trimethoprim [From Bactrim] AdvReac Unknown reacts Verified 03/14/24 00:31 with methotrexate Consultations 03/13/24 23:36 ED Decision to Admit Stat Hospital Course (1) Acute hyperglycemia: 53-year-old male with past medical history significant for type 2 diabetes, hyperlipidemia, obstructive sleep apnea, allergic rhinitis, hypertension, obesity, irritable bowel syndrome, history of basal cell carcinoma, history of dermatographic urticaria, history of ocular migraine, history of rheumatoid arthritis, presents with hyperglycemia. Patient says he was on metformin last year but took only for 1 month and stopped it because felt it was causing fatigue. Recently saw PCP and his HbA1c was increased from 5.7 last year to 8.5. Seems/when his metformin was increased to 1000 mg he felt fatigued and tired. Metformin 500 mg was restarted about a week ago. He was also prescribed Mounjaro but patient states not sure if insurance approved it yet. But his sugars were running high at home and came to the ER. Sugars are running in the 400s in the ER. Had a lot of blurred visions from high sugars. Denies any headache. No dizziness. No runny nose or sore throat, no cough. No fevers. No chest pain or shortness of breath. No nausea or abdominal pain. Normal bowel and bladder movements. Ambulating okay. Currently resting comfortably and hemodynamically stable. Poorly controlled Diabetes mellitus Recent HbA1c was 8.5 last month HbA1c now is 11 Reported he resume metformin recently Mounjaro was prescribed but not started taking it yet Blood sugar was in 400s on presentation. Not in DKA Extensive DM education was provided Patient was discharged on Semglee 20Units daily which DM educator confirmed is covered by his insurance. His Metformin was increased to 1000mg BID Since he has not picked up Shara, he was advised not to start it yet until follow up with his PCP to monitor home blood glucose management with insulin and new med changes. Educated about lifestyle modifications. He reported he will start following up again with Weight loss that he was following before. Sleep apnea Reports he has not been using CPAP everyday Counseled regarding need for adherence to CPAP use Hypertension Was on amlodipine 2.5mg daily. This was stopped inpatient and started on losartan 25mg daily for better BP management. PCP to continue to manage Hyperlipidemia On statin Rheumatoid arthritis On methotrexate which will be held for now Obesity As above Total Time Total Time Spent Total Time Spent (In Minutes): 40 Total Time Includes: Examination of the Patient, Discharge Planning, Medication Reconciliation, Communication With Other Providers and Other (Semglee retransmitted to [facility] after DM educator confirm availability there) Discharge Plan Discharge Items Patient Disposition: Home - Self-Care Reason For Visit: HYPERGLYCEMIA Discharge Diagnosis: Diabetes mellitus Hypertension Condition on Discharge: Good Activity: Resume your previous activity Non-emergency contact: Primary Care Provider Call non-emergency contact if: you have any medication questions Follow-up/Referrals: Bashir Plaza MD [Primary Care Provider] - 03/19/24 9:20 am (Date & Time 03/19/2024 9:20 AM Provider Gaby Trevizo MD [facility] ) Diet: Carb Consistent or DM2, Heart Healthy and Low Sodium (2gm) Addtl Attending Provider Instructions: Mr Anderson You presented to the hospital due to elevated blood glucose and blurry vision. You were noted to have poorly controlled diabetes mellitus. You are being discharged on long acting insulin injection once a day. Your metformin is being increased as well. Please follow instructions as provided by Blanket [employer]. Your amlodipine was stopped and you were started on losartan for better blood pressure control. Please ensure follow up with your Primary Doctor. It was a pleasure taking care of you. Pending Studies at Discharge: No Stand-Alone Forms: [facility] [employer] [facility], Smoking Cessation Medications and DC Order Prescriptions: New losartan 25 mg Tablet 25 mg PO QAM Qty: 30 0RF insulin glargine-yfgn [Semglee(insulin glarg-yfgn)Pen] 100 unit/mL (3 mL) insulin pen 20 unit subcut DAILY Qty: 15 0RF (DME) pen needle, diabetic 32 gauge x 5/32" needle See Rx Instructions .Route Qty: 100 0RF Rx Instructions: As directed. Use with insulin injection daily Continued multivitamin [Daily Multi-Vitamin] Tablet 1 tab PO DAILY famotidine [Pepcid] 20 mg Tablet 20 mg PO BID Vitamin C 100 mg Tablet 100 mg PO DAILY omega 4-hgu-ovt-fish oil [Fish Oil] 1,000 mg (120 mg-180 mg) Capsule 1 cap PO DAILY methotrexate sodium 2.5 mg tablet See Rx Instructions .ROUTE .COMPLEX Rx Instructions: take 3 tablets by mouth with lunch and 3 tablets with dinner on sundays hyoscyamine sulfate 0.125 mg tablet, sublingual 0.125 mg sublingual Q6 PRN (Reason: cramping) polyethylene glycol 3350 [Miralax] 17 gram/dose Powder 17 g PO DAILY folic acid 1 mg tablet 1 mg PO [id number] Rx Instructions: TAKES EVERY DAY EXCEPT SUNDAYS. atorvastatin 20 mg tablet 20 mg PO QAM Changed metformin 500 mg Tablet Extended Release 24 Hr 1,000 mg PO BID 30 Days Qty: 120 0RF Discontinued amlodipine 2.5 mg tablet 2.5 mg PO QAM Discharge Orders: Discharge Order (Routine); Ordered 03/15/24 Ordered By: Alda Santacruz Admission Data Admit Date/Time: 03/14/24 02:50 Attending Provider: Alda Santacruz I. Admit Provider: Ortiz Palomino Primary Care Provider: Bashir Plaza Other Providers: Ortiz Palomino Other Interventions: Discharge Summary Assessment (RN) Last Done: 03/15/24 12:14
[2024-03-15 12:16] VITALS: BP 150/76; PULSE 77
--- OUTSIDE RECORDS SUMMARY | 2024-03-15 15:03 | External Medical Summary | Summary of Care ---
Author Name Unknown Organization [facility] Address [address] [place] [address] Phone [phone] Care Team Providers Care Top Steep Tender Name Role Phone Bola BAE MD, Bashir Modi Primary Care Provider [phone] Reason for Visit * Reason Onset Date Comments Hospital Follow-Up 03/14/2024 Encounter Details Date Type Department Care Team (Late st Contact Info) Description 03/14/2024 Telephone General Internal Medicine [facility] [address] [place] [id number] Bashir Plaza III, MD [address] [facility] [place] [address] Hospital Follow-Up Allergies Active Allergy Reactions Criticality Noted Date Comments Amoxicillin-Pot Clavulanate 12/21/2017 Interacts with methotrexate Sulfamethoxazole-Trimethop rim 12/21/2017 On methotrexate Penicillins 04/29/2002 told occurred as an Other reaction(s): reacts with methotrexate, Unknown documented as of this encounter (statuses as of 03/14/2024) Medications Medication Sig Dispensed Refills Start Date [...] (BMI) of 45.0 to 49.9 in adult ([facility]) Inject 2.5 mg under the skin once a week. 2 mL 11 02/13/2024 02/12/2025 Active Atorvastatin Calcium 20 MG Oral Tablet (Lipitor)Indications :Mixed dyslipidemia Take 1 Tablet by mouth in the morning. 90 Tablet 3 03/13/2024 Active documented as of this encounter (statuses as of 03/14/2024) Active Problems Problem Noted Date Diagnosed Date [...] as of this encounter (statuses as of 03/14/2024) Resolved Problems Problem Noted Date Diagnosed Date Resolved Date Body mass index (BMI) of 40. 0 to 44.9 in adult 04/17/2017 06/01/2023 Overview: Per Obesity protocol #1 Obesity, Class II, BMI 35-39 .9, isolated (see actual BMI) 01/28/2011 04/20/2017 Overview: Per Obesity protocol #1 documented as of this encounter (statuses as of 03/14/2024) Immunizations Name Administration Dates Next Due COVID-19 mRNA, LNP-s, No Pre serve, 2-Dose Series ([employer]) 11/18/2021,05/20/2021,10/01/2020,09/17,08/27/2020 HEP A - Hepatitis A (Adult [...] lent, No Preserve, IM 03/29/2017,03/23/2016 Seasonal Influenza, Triv[place] t, (IIV3), with Preserv, (Fluzone) 05/28/2013,04/16/2012,03/31/2011,05/22,05/31/2008,08/14/2006 03/31/2012 TD, Preservative Free 08/30/2019 TDAP, [...] encounter Miscellaneous Notes * Telephone Encounter - Gaby Trevizo MD - 03/14/2024 11:08 AM EDT Can you check on prior auth for Mounjaro for patient's uncontrolled DM? I can resubmit Rx if needed * Telephone Encounter - Tyler Monroy RN - 03/14/2024 10:52 AM EDT Patient is currently admitted to [facility] for hyperglycemia. Patient reports having been prescribed Mounjaro but was unable to roll picker at the pharmacy in January. I placed a call to [facility] to find out if cost was excessive, and they reported that a prior auth is necessary. Have you received an approval/denial for that? Hospitalist trying to figure out the best medication course for discharge. Thank you documented in this encounter Plan of Treatment [...] Not on filedocumented as of this encounter Care Teams Top Steep Tender Relationship Specialty Start Date End Date Bashir Plaza III, MD [address] [place], [place] [address] PCP - General Family Medicine 01/23/15 documented as of this encounter
== END 2024-03-15 12:52 | disposition home or self-care (01) ==
LOC: ED 20:41 → 3N 20:41